=== PATIENT | female | born 1950 | race Caucasian/White ===

== ENCOUNTER 2016-10-11 15:19 | Inpatient (IN) | payer OTHER, MEDICARE ==
[~2016-10-11] VITALS: Ht 154.9 cm; Wt 73.9 kg
--- NOTE | 2016-10-11 15:27 | NUR ---
PT TO ROOM21 BIBA FROM HOME S/P UNWITNESSED FALL. HX OF MENTAL RETARDATION, PT CONFUSED AT BASELINE. PT STATES SHE WAS WAKING TO BATHROOM, TRIPPED AND FELL BACKWARDS, TWISTED LEFT ANKLE. PT ARRIVED AWAKE, ALERT, CONFUSED, +DEFORMITY TO LEFT ANKLE. DENIES HEADSTRIKE, -BLOOD THINNERS. VSS.
--- NOTE | 2016-10-11 15:32 | NUR ---
PT EVALUATED BY PA STUDENT.
--- NOTE | 2016-10-11 15:40 | ED MVC/FALL/TRAUMA COMPLAINT ---
History of Present Illness General Chief Complaint: Fall Stated Complaint: BIBA FALL Source: patient, old records, EMS, home health aide Exam Limitations: history of mental retardation Vital Signs & Intake/Output Vital Signs & Intake/Output Vital Signs Date Time Temp Pulse Resp B/P Pulse O2 O2 Flow FiO2 Ox Delivery Rate 10/12 1657 98.7 95 16 122/70 98 Nasal 2.0L Cannula 10/12 1406 98.3 92 20 125/82 97 10/12 0800 93 Nasal 2.0L Cannula 10/12 0656 97.5 97 20 90/70 93 Room Air 10/11 2124 97.7 103 18 122/84 95 Nasal Cannula 10/11 2114 Nasal 2.0L Cannula 10/11 1921 99.1 106 16 142/83 95 Nasal 2.0L Cannula 10/11 1819 99.6 108 18 136/64 90 Room Air ED Intake and Output 10/12 0000 10/11 1200 Intake Total 400 Output Total Balance 400 Intake, IV 200 Intake, Oral 200 Patient 164 lb Weight Triage Note: PT TO ROOM21 BIBA FROM HOME S/P UNWITNESSED FALL. HX OF MENTAL RETARDATION, PT CONFUSED AT BASELINE. PT STATES SHE WAS WAKING TO BATHROOM, TRIPPED AND FELL BACKWARDS, TWISTED LEFT ANKLE. PT ARRIVED AWAKE, ALERT, CONFUSED, +DEFORMITY TO LEFT ANKLE. DENIES HEADSTRIKE, -BLOOD THINNERS. VSS. Triage Nurses Notes Reviewed? yes HPI: Patient is a 66-year-old female presents claiming of left ankle pain. Patient was in the bathroom when she slipped and fell. Injury occurred at approximately 2:30 PM. Pain is currently severe, worsens with palpation. Denies head injury, neck pain, back pain. (KIARA VALENZUELA,NICCI) Allergies Coded Allergies: No Known Allergies (10/11/16) Reconcile Medications Alendronate Sodium 70 MG TABLET 1 TAB PO QWED OSTEOPOROSIS (Reported) in the morning, at least 30 minutes before the first food, beverage, or medication of the day Aripiprazole 5 MG TABLET 1 TAB PO DAILY MENTAL HEALTH (Reported) Atorvastatin Calcium 20 MG TABLET 1 TAB PO DAILY CHOLESTEROL (Reported) Bifidobacterium Infantis (Align) 4 MG (1 BILLION CELL) CAPSULE 1 CAP PO DAILY PROBIOTIC (Reported) Calcium Carbonate (TUMS) 200 MG CALCIUM (500 MG) TAB.CHEW 2 TAB PO 4 TIMES/DAY PRN GI (Reported) Ibuprofen 600 MG TABLET 1 TAB PO Q6H PRN PAIN/INFLAMMATION (Reported) with food Omeprazole 20 MG CAPSULE.DR 1 CAP PO DAILY GI (Reported) Paroxetine HCl 40 MG TABLET 1 TAB PO DAILY MENTAL HEALTH (Reported) Valsartan 80 MG TABLET 1 TAB PO DAILY BP (Reported) (MARKOS FORMAN,ASHISH) Past History Travel History Traveled to [place] past 21 day No Medical History Any Pertinent Medical History? see below for history Neurological: MENTAL RETARDATION MIGRAINES EENT: rhinitis Cardiovascular: hypertension, hyperlipidemia Gastrointestinal: constipation Musculoskeletal: osteoporosis Psychiatric: depression Surgical History Surgical History: non-contributory Psychosocial History What is your primary language Malawian Tobacco Use: Never used Family History Hx Contributory? No (NICCI VILLAFUERTE) Review of Systems Review of Systems Constitutional: Reports: no symptoms. Eyes: Reports: no symptoms. Ears, Nose, Throat, Mouth: Reports: no symptoms. Respiratory: Reports: no symptoms. Cardiovascular: Reports: no symptoms. Gastrointestinal/Abdominal: Reports: no symptoms. Musculoskeletal: Reports: see HPI. Skin: Reports: no symptoms. Neurological/Psychological: Reports: no symptoms. (NICCI VILLAFUERTE) Physical Exam Physical Exam General Appearance: well developed/nourished, alert, awake Head: atraumatic, normal appearance Eyes: Bilateral: normal appearance, PERRL, EOMI. Ears, Nose, Throat, Mouth: hearing grossly normal, moist mucous membrane Neck: normal inspection, supple, full range of motion, no midline tenderness Respiratory: normal breath sounds, no respiratory distress, lungs clear Cardiovascular: regular rate/rhythm Peripheral Pulses: 2+ dorsalis pedis (L) Gastrointestinal: soft, non-tender Back: normal inspection, normal range of motion Extremities: deformity, swelling, tenderness left distal leg. Neurologic/Psych: awake, alert, sensation to light touch intact to the left foot Skin: intact, warm/dry Core Measures ACS in differential dx? No Severe Sepsis Present: No Septic Shock Present: No (NICCI VILLAFUERTE) Progress Differential Diagnosis: aoritic dissection, abd injury, C/T/L spine injury, ext injury, ICH, pelvis injury, pnemothorax, spinal cord injury Plan of Care: Orders Procedure Date/time Status Nothing by Mouth 10/12 B Active BASIC ELECTROLYTES PLUS BUN&CR 10/12 1159 Complete ARTERIAL BLOOD GAS (GEN) 10/12 1143 Complete Device(s) 10/12 0954 Active EKG 10/12 0900 Active CBC WITHOUT DIFFERENTIAL 10/12 0600 Complete BASIC ELECTROLYTES PLUS BUN&CR 10/12 0600 Complete Clear Liquid Diet 10/11 D Complete Vital Signs 10/11 2111 Active Teach/Educate 10/11 2110 Active Pain Treatment and Response 10/11 2110 Active Nutritional Intake, Monitor 10/11 2110 Active Isolation 10/11 2110 Active Intake & Output 10/11 2110 Active Patient Care Conference 10/11 2110 Active Activity/Ambulation 10/11 2110 Active Patient Data 10/11 1806 Active Code Status 10/11 1806 Active EKG 10/11 1733 Active HEPATIC FUNCTION PANEL 10/11 1718 Complete OXYGEN SETUP (GEN) 10/11 1600 Complete OXYGEN SETUP CHG 10/11 UNK Complete OXYGEN 10/11 UNK Complete OXYGEN TRANSPORT 10/11 UNK Complete Admit to inpatient 10/11 UNK Active Lab Add-on Test 10/11 UNK Active Vital Signs 10/11 UNK Active Intake & Output 10/11 UNK Active Heat/Cold Therapy 10/11 UNK Active Elevate 10/11 UNK Active CMS- Neurovascular Checks 10/11 UNK Active Diet Message 10/11 UNK Active CASE MANAGEMENT CONSULT 10/11 UNK Active Current Medications Sig/Jakob Start time Last Medication Dose Stop Time Status Admin Losartan Potassium 50 MG DAILY 10/13 1000 CAN (Cozaar) Atorvastatin Calcium 20 MG 1700 10/12 1700 AC (Lipitor) Omeprazole 20 MG DAILY AC 10/12 0700 CAN (Prilosec) Bisacodyl 10 MG DAILY PRN 10/11 1815 AC (Dulcolax Supp) Calcium Carbonate 500 MG Q6-PRN PRN 10/11 1815 AC (TUMS) Magnesium Hydroxide 30 ML DAILY NEEDED PRN 10/11 181 AC (Milk Of Magnesia) Laboratory Tests 10/12/16 1300: Anion Gap 12, Estimated GFR 41 L, BUN/Creatinine Ratio 20.8 10/12/16 1200: pH 7.33 L, pCO2 46 H, pO2 100, HCO3 24, ABG O2 Sat (Measured) 97.0, Carboxyhemoglobin 0.5 L, O2 Concentration % 2L, O2 Delivery Method NC, Phlebotomy Draw Site RIGHT RADIAL 10/12/16 0700: Anion Gap 16, Estimated GFR 26 L, BUN/Creatinine Ratio 15.8, CBC w Diff NO MAN DIFF REQ, RBC 3.94 L, MCV 96.9, MCH 32.0 H, RDW 14.8 H, MPV 8.3, Gran % 85.4 H, Lymphocytes % 5.4 L, Monocytes % 9.1, Eosinophils % 0, Basophils % 0.1, Absolute Granulocytes 10.1 H, Absolute Lymphocytes 0.6 L, Absolute Monocytes 1.1 H, Absolute Eosinophils 0, Absolute Basophils 0, PUBS MCHC 33.0 10/11/16 1718: Anion Gap 12, Estimated GFR > 60, BUN/Creatinine Ratio 26.3 H, Glucose 113 H, Calcium 9.7, Total Bilirubin 0.6, Direct Bilirubin 0.3, AST 32, ALT 55 H, Alkaline Phosphatase 112, Total Protein 7.4, Albumin 4.2 1640: Patient re-evaluated. Moderate improvement in pain. Pulses and sensation remain intact. Discussed with and seen by Dr. España. Dr. Olivo paged. Discussed with Dr. Olivo: contact surgical PA, medicine for clearance, and place patient in a posterior long leg splint. Discussed with Dr. Kumar for medicine consultation/clearance (KIARA VALENZUELA,NICCI) Diagnostic Imaging: Viewed by Me: Radiology Read. Discussed w/RAD: Radiology Read. Radiology Impression: PATIENT: NANI ENRIQUEZ PRESENT AGE: 66 PATIENT ACCOUNT NO: [id number] : 49 LOCATION: [facility] ([place]) ORDERING PHYSICIAN: NICCI VALENZUELA SERVICE DATE: 10/11/16 EXAM TYPE: RAD - XRY-ANKLE 3 OR MORE VIEWS L; [id number], LEFT EXAMINATION: XR ANKLE AND X- RAY TIBIA AND FIBULA, LEFT CLINICAL INFORMATION: Status post fall. History tibial deformity. COMPARISON: None TECHNIQUE: AP and lateral views of the left tibia and fibula were obtained. 3 views of the left ankle FINDINGS: Spiral appearing fracture distal tibial shaft with almost shaft width dorsal medial displacement of the proximal fragment. Comminuted displaced fracture midshaft fibula with posteriorly displaced butterfly fragment. Ankle mortise is intact. Moderate soft tissue swelling dorsal, medial and lateral aspects of the ankle and lower leg. IMPRESSION: 1. Displaced spiral fracture distal tibia. 2. Displaced comminuted fracture mid shaft fibula. DICTATED BY: KADY SCHULTZ MD DATE/TIME DICTATED:10/11/161638 MEDICATION RECONCILIATION TECHNICIAN:PEE DATE/TIME TRANSCRIBED:10/11/161638 CONFIDENTIAL, DO NOT COPY WITHOUT APPROPRIATE AUTHORIZATION. <Electronically signed in Other Vendor System> SIGNED BY: KADY SCHULTZ MD 10/11/16 1652 (NICCI VILLAFUERTE) Departure Departure Disposition: STILL A PATIENT Condition: Stable Clinical Impression Primary Impression: Comminuted fracture of shaft of tibia Secondary Impressions: Comminuted fracture of shaft of fibula Referrals: AL FORMAN,ELLIOTT Flores (PCP/Family) Departure Forms: Customer Survey General Discharge Information Admission Note Spoke With: ADAM FORMAN,ERNST Documentation of Exam: Documentation of any treatments & extenuating circumstances including Concerns Regarding Discharge (functional status, medication knowledge or non-compliance, living conditions, etc.) that warrant an admission rather than observation: medical clearance, orthopedic OR intervention, pain control, PT evaluation (NICCI VILLAFUERTE) PA/SHAFT REPAIRER Co-Sign Statement Statement: ED Attending supervision documentation- [X] I saw and evaluated the patient. I have also reviewed all the pertinent lab results and diagnostic results. I agree with the findings and the plan of care as documented in the PA's/SHAFT REPAIRER's documentation. [X] I have reviewed the ED Record and agree with the PA's/SHAFT REPAIRER's documentation. [] Additions or exceptions (if any) to the PAs/SHAFT REPAIRER's note and plan are summarized below: [] (MARKOS FORMAN,ASHISH) Procedures Splinting Location: left lower extremity Hand-Made Type: orthoglass Splint: posterior long leg splint Splint Applied By: splint applied by me Pre-Proc Neuro Vasc Exam: normal Post-Proc Neuro Vasc Exam: normal (NICCI VILLAFUERTE) ED Attending Observation Initial Observation Note: I have seen and personally examined NANI ENRIQUEZ on 10/12/16 at 1657. I agree with the current emergency department documentation. The disposition (admission or discharge) is uncertain at this time, she needs a period of observation for the following reason(s): The ED Nurse caring for this patient has been personally informed as to what the patient is being observed for. (KIARA VALENZUELA,NICCI)
--- NOTE | 2016-10-11 16:00 | NUR ---
IV EST, PT MEDICATED WITH MORPHINE PER EMAR.
[2016-10-11] MEDS ORDERED: ALENDRONATE SOD70 M2 PO (16:11)
[2016-10-11] MEDS ORDERED: PAROXETINE HCL40 M1 PO (16:12)
[2016-10-11] MEDS ORDERED: ATORVASTATIN CA20 M1 PO (16:12)
[2016-10-11] MEDS ORDERED: IBUPROFEN600 M1 PO (16:12)
[2016-10-11] MEDS ORDERED: OMEPRAZOLE20 M2 PO (16:13)
[2016-10-11] MEDS ORDERED: TUMS200 MG PO (16:13)
[2016-10-11] MEDS ORDERED: ARIPIPRAZOLE5 M1 PO (16:15)
[2016-10-11] MEDS ORDERED: ALIGN4 M1 PO (16:16)
[2016-10-11] MEDS ORDERED: VALSARTAN80 M1 PO (16:16)
--- NOTE | 2016-10-11 16:52 | RADIOLOGY REPORT ---
EXAMINATION: XR ANKLE AND X-RAY TIBIA AND FIBULA, LEFT CLINICAL INFORMATION: Status post fall. History tibial deformity. COMPARISON: None TECHNIQUE: AP and lateral views of the left tibia and fibula were obtained. 3 views of the left ankle FINDINGS: Spiral appearing fracture distal tibial shaft with almost shaft width dorsal medial displacement of the proximal fragment. Comminuted displaced fracture midshaft fibula with posteriorly displaced butterfly fragment. Ankle mortise is intact. Moderate soft tissue swelling dorsal, medial and lateral aspects of the ankle and lower leg. IMPRESSION: 1. Displaced spiral fracture distal tibia. 2. Displaced comminuted fracture mid shaft fibula.
[2016-10-11 16:58] LABS: ABSOLUTE BASOPHIL COUNT 0 /CUMM (0.0-0.2); ABSOLUTE EOSINOPHIL COUNT 0.2 /CUMM (0.0-0.7); ABSOLUTE GRANULOCYTE CT 6.9 /CUMM (1.4-6.5); ABSOLUTE LYMPH COUNT 1.6 /CUMM (1.2-3.4); ABSOLUTE MONOCYTE COUNT 0.7 /CUMM (0.10-0.60); BASOPHIL % 0.4 % (0.0-2.0); EOSINOPHIL % 1.8 % (0-5); GRANULOCYTE % 72.8 % (42.2-75.2); HEMATOCRIT 41.5 % (37-47); MEAN CORPUSCULAR HGB 31.9 PG (27.0-31.0); MEAN CORPUSCULAR HGB CONC 33.5 G/DL (33.0-37.0); MEAN CORPUSCULAR VOLUME 95.2 FL (81.0-99.0); MEAN PLATELET VOLUME 8.8 FL (7.4-10.4); PLATELET COUNT 314 /CUMM (130-400); RBC DISTRIBUTION WIDTH 15.2 % (11.5-14.5); RED BLOOD CELL CT 4.36 /CUMM (4.20-5.40); WHITE BLOOD CELL COUNT 9.5 /CUMM (4.8-10.8)
[2016-10-11 17:04] LABS: PT 12.5 SEC (9.4-12.5)
--- NOTE | 2016-10-11 17:05 | NUR ---
PER ED IN THE LAB, REDRAW NEEDED ON BLUE AND SST. AND A PINK TOP
--- NOTE | 2016-10-11 18:10 | Admission Core Measures ---
Admission Lab Results I reviewed the following labs: Laboratory Tests 10/11 10/11 1718 1620 Chemistry Sodium (137 - 145 mmol/L) 138 Potassium (3.5 - 5.1 mmol/L) 4.4 Chloride (98 - 107 mmol/L) 99 Carbon Dioxide (22 - 30 mmol/L) 27 Anion Gap (5 - 16) 12 BUN (7 - 17 mg/dL) 21 H Creatinine (0.5 - 1.0 mg/dL) 0.8 Estimated GFR (>60 ml/min) > 60 BUN/Creatinine Ratio (7 - 25 %) 26.3 H Glucose (65 - 99 mg/dL) 113 H Calcium (8.4 - 10.2 mg/dL) 9.7 Coagulation PT (9.4 - 12.5 SEC) 12.5 INR (0.90 - 1.19) 1.19 Hematology CBC w Diff NO MAN DIFF REQ WBC (4.8 - 10.8 /CUMM) 9.5 RBC (4.20 - 5.40 /CUMM) 4.36 Hgb (12.0 - 16.0 G/DL) 13.9 Hct (37 - 47 %) 41.5 MCV (81.0 - 99.0 FL) 95.2 MCH (27.0 - 31.0 PG) 31.9 H RDW (11.5 - 14.5 %) 15.2 H Plt Count (130 - 400 /CUMM) 314 MPV (7.4 - 10.4 FL) 8.8 Gran % (42.2 - 75.2 %) 72.8 Lymphocytes % (20.5 - 51.1 %) 17.2 L Monocytes % (1.7 - 9.3 %) 7.8 Eosinophils % (0 - 5 %) 1.8 Basophils % (0.0 - 2.0 %) 0.4 Absolute Granulocytes (1.4 - 6.5 /CUMM) 6.9 H Absolute Lymphocytes (1.2 - 3.4 /CUMM) 1.6 Absolute Monocytes (0.10 - 0.60 /CUMM) 0.7 H Absolute Eosinophils (0.0 - 0.7 /CUMM) 0.2 Absolute Basophils (0.0 - 0.2 /CUMM) 0 PUBS MCHC (33.0 - 37.0 G/DL) 33.5 Admission Meds I reviewed the following Meds: Current Medications Sig/Jakob Start time Last Medication Dose Stop Time Status Admin Acetaminophen 1,000 MG Q6H 10/11 181 UNVr (Ofirmev) 10/12 1229 N/A 1 UNIT (No Carrier) Atorvastatin Calcium 20 MG 1700 10/12 1700 UNVr (Lipitor) Bisacodyl 10 MG DAILY PRN 10/11 1814 UNVr (Dulcolax Supp) Calcium Carbonate 500 MG Q6-PRN PRN 10/11 181 UNVr (TUMS) Dextrose/Sodium 1,000 ML Q10H 10/11 181 UNVr Chloride (D5-Normal Saline) Docusate Sodium 100 MG BID 10/11 220 UNVr (Colace) Magnesium Hydroxide 30 ML DAILY NEEDED PRN 10/11 1814 UNVr (Milk Of Magnesia) Morphine Sulfate 2 MG Q3 PRN 10/11 1814 UNVr (Morphine) Morphine Sulfate 4 MG Q3P PRN 10/11 1814 UNVr (Morphine) Morphine Sulfate 4 MG ONCE ONE 10/11 1800 UNVr (Morphine) 10/11 180 Omeprazole 20 MG DAILY AC 10/12 0700 UNVr (Prilosec) Paroxetine HCl 20 MG DAILY 10/12 1000 UNVr (Paxil) Acute Coronary Syndrome Inclusion Criteria ACS Diagnosis No Inpatient Core Measures LDL Reminder: If No, please order W/I first 24hr of stay Congestive Heart Failure Inclusion Criteria CHF Diagnosis No Cerebrovascular accident Inclusion Criteria CVA/TIA Diagnosis No Inpatient Core Measures Bedside Swallow Eval Reminder: If BSE failed, place ST order Antithrombotic Reminder: Order Antithrombotic Medication by end of day 2 Antithrombotic Reminder: Document Reason Antithrombotic Not ordered by end of day 2 AFIB/Flutter Reminder: If Present, add to problem list AFIB/Flutter Reminder: Order Anticoag Medication for pts with AFIB/Flutter Atherosclerosis Reminder: If Present, add to problem list LDL Reminder: If No, please order W/I first 24hr of stay PT Order Reminder: If No, please order Venous thromboembolism Inpatient Core Measures VTE Risk Factors: Age > 40, Trauma major or lower ext No Mech VTE prophylaxis d/t Surgical procedure LE No VTE Pharm Prophylaxis d/t Surgical contraindication Inclusion Criteria - Per Current guidelines, there needs to be overlap - treatment for the first 5 days of Warfarin therapy. - Parenteral Anticoagulation (IV or SC) needs to be - given along with Warfarin therapy. VTE Diagnosis No VTE Type NONE VTE Confirmed by (Test) NONE Problem List As ranked by this Provider includes Assessment & Plan 1. Comminuted fracture of shaft of fibula 2. Comminuted fracture of shaft of tibia 3. Mental retardation 4. GERD (gastroesophageal reflux disease) 5. Depressed 6. Hyperlipidemia HOME MEDS Home Med List Alendronate Sodium 70 MG TABLET 1 TAB PO QWED OSTEOPOROSIS (Reported) Aripiprazole 5 MG TABLET 1 TAB PO DAILY MENTAL HEALTH (Reported) Atorvastatin Calcium 20 MG TABLET 1 TAB PO DAILY CHOLESTEROL (Reported) Bifidobacterium Infantis (Align) 4 MG (1 BILLION CELL) CAPSULE 1 CAP PO DAILY PROBIOTIC (Reported) Calcium Carbonate (TUMS) 200 MG CALCIUM (500 MG) TAB.CHEW 2 TAB PO 4 TIMES/DAY PRN GI (Reported) Ibuprofen 600 MG TABLET 1 TAB PO Q6H PRN PAIN/INFLAMMATION (Reported) Omeprazole 20 MG CAPSULE.DR 1 CAP PO DAILY GI (Reported) Paroxetine HCl 40 MG TABLET 1 TAB PO DAILY MENTAL HEALTH (Reported) Valsartan 80 MG TABLET 1 TAB PO DAILY BP (Reported)
--- NOTE | 2016-10-11 18:16 | History & Physical Pre-Op ---
General Information and HPI MD Statement: I have seen and personally examined NANI ENRIQUEZ and documented this H&P. The patient is a 66 year old F who presented with a patient stated chief complaint of [LEFT LEG PAIN]. Source of Information: patient, family, EMS Exam Limitations: MENTAL RETARDATION History of Present Illness: This 66-year-old female with history of mental retardation with 24 hour care was brought in by ambulation after falling in her bathroom at her apartment, where she is supervised by 24 hour care. She denies precipitating factors, and was accompanied by family yesterday who reports she was feeling well. She denies head trauma. EMS was called after the injury occured at around 2:30 pm today. She has been given several doses of morphine, and was found to have a comminuted fracture involving both her tibia and fibula of her left leg. She is accompanied by her sister, Genevieve, who is also her power of courtesy car driver. Her pain seems to be better after receiving several doses of morphine. Her leg was immobilized by the PA in the ED. They have called the hospitalist for co-management and clearance. Allergies/Medications Allergies: Coded Allergies: No Known Allergies (10/11/16) Home Med list Alendronate Sodium 70 MG TABLET 1 TAB PO QWED OSTEOPOROSIS (Reported) in the morning, at least 30 minutes before the first food, beverage, or medication of the day Aripiprazole 5 MG TABLET 1 TAB PO DAILY MENTAL HEALTH (Reported) Atorvastatin Calcium 20 MG TABLET 1 TAB PO DAILY CHOLESTEROL (Reported) Bifidobacterium Infantis (Align) 4 MG (1 BILLION CELL) CAPSULE 1 CAP PO DAILY PROBIOTIC (Reported) Calcium Carbonate (TUMS) 200 MG CALCIUM (500 MG) TAB.CHEW 2 TAB PO 4 TIMES/DAY PRN GI (Reported) Ibuprofen 600 MG TABLET 1 TAB PO Q6H PRN PAIN/INFLAMMATION (Reported) with food Omeprazole 20 MG CAPSULE.DR 1 CAP PO DAILY GI (Reported) Paroxetine HCl 40 MG TABLET 1 TAB PO DAILY MENTAL HEALTH (Reported) Valsartan 80 MG TABLET 1 TAB PO DAILY BP (Reported) Past History Medical History Neurological: MENTAL RETARDATION MIGRAINES EENT: rhinitis Cardiovascular: hypertension, hyperlipidemia Gastrointestinal: constipation Musculoskeletal: osteoporosis Psychiatric: depression Surgical History Pertinent Surgical History: non-contributory Past Family/Social History Psychosocial History Where Do You Live? Home Who Do You Live With? roommate, who also requires 24 hour care Services at Home 24 hour care Primary Language: Bangladeshi Functional Ability Ambulation: independent Review of Systems Review of Systems: admits: left leg pain denies: dizziness, shortness of breath, chest pains, abdominal pain, headache, dysuria Exam & Diagnostic Data Last 24 Hrs of Vital Signs/I&O Vital Signs Date Time Temp Pulse Resp B/P Pulse O2 O2 Flow FiO2 Ox Delivery Rate 10/11 1524 99.5 96 18 156/76 97 Room Air Intake & Output 10/11 1600 10/11 0800 10/11 0000 Intake Total Output Total Balance Patient 190 lb Weight Physical Exam: General - alert. oriented to person, place, day of the week, situation. comfortable. heent - ncat. decreased hearing bilaterally, apparently her baseline. skin - warm, dry, smooth Lungs - clear bilaterally. no w/r/r. Cardiac - s1s2. reg. Abdomen - soft. nontender. Extremities - warm bilaterally. obvious deformity noted to her left lower leg. sensation grossly equal. able to move her toes with respect to her fractured / left leg. did not attempt range of motion of her lower leg. immobilized by ED. Neuro - no focal deficits. Last 24 Hrs of Labs/Ervin: Laboratory Tests 10/11/16 1718: Anion Gap 12, Estimated GFR > 60, BUN/Creatinine Ratio 26.3 H, Glucose 113 H, Calcium 9.7 10/11/16 1620: PT 12.5, INR 1.19, CBC w Diff NO MAN DIFF REQ, RBC 4.36, MCV 95.2, MCH 31.9 H, RDW 15.2 H, MPV 8.8, Gran % 72.8, Lymphocytes % 17.2 L, Monocytes % 7.8, Eosinophils % 1.8, Basophils % 0.4, Absolute Granulocytes 6.9 H, Absolute Lymphocytes 1.6, Absolute Monocytes 0.7 H, Absolute Eosinophils 0.2, Absolute Basophils 0, PUBS MCHC 33.5 Diagnostic Data Other Results EXAMINATION: XR ANKLE AND X-RAY TIBIA AND FIBULA, LEFT CLINICAL INFORMATION: Status post fall. History tibial deformity. COMPARISON: None TECHNIQUE: AP and lateral views of the left tibia and fibula were obtained. 3 views of the left ankle FINDINGS: Spiral appearing fracture distal tibial shaft with almost shaft width dorsal medial displacement of the proximal fragment. Comminuted displaced fracture midshaft fibula with posteriorly displaced butterfly fragment. Ankle mortise is intact. Moderate soft tissue swelling dorsal, medial and lateral aspects of the ankle and lower leg. IMPRESSION: 1. Displaced spiral fracture distal tibia. 2. Displaced comminuted fracture mid shaft fibula. DICTATED BY: KADY SCHULTZ MD DATE/TIME DICTATED:10/11/161638 NUT SHELLER:PEE DATE/TIME TRANSCRIBED:10/11/161638 CONFIDENTIAL, DO NOT COPY WITHOUT APPROPRIATE AUTHORIZATION. Assessment/Plan Assessment/Plan: This 66 year old female with known mental retardation, gerd, hyperlipidemia, depression, is here with left sided spiral appearing fracture of distal tibial shaft and comminuted displaced fracture midshaft fibula npo after midnight for surgery tomorrow with pain control as needed medical consult called for co-management elevation / ice / immobilization hold heparin sc if going to OR in am monitor for compartment syndrome will d/w her sister Genevieve is power of courtesy car driver, As Ranked By This Provider Problem List: 1. Comminuted fracture of shaft of tibia 2. Comminuted fracture of shaft of fibula 3. Mental retardation 4. GERD (gastroesophageal reflux disease) 5. Depressed 6. Hyperlipidemia
--- NOTE | 2016-10-11 18:41 | Cons- Medical ---
HUBERT GAFFNEY MD 10/11/16 1841: General Information and HPI Consulting Request Date of Consult: 10/11/16 Requested By: Jani Olivo MD Reason for Consult: preop Reevaluation History of Present Illness: this is a 66-year-old female with a past medical history of mental retardation since , tension, anxiety, obsessive-compulsive disorder, hyperlipidemia, GERD currently residing in in an assisted living in a separate apartment with 24 -hour home caregiver who presented to the [facility] after she had a mechanical fall while she was trying to use a commode in the bathroom. The patient herself is not able to provide any history and most of the history was obtained by the patient's sister at the bedside who is well familiar with the patient's past medical history. As per the patient's sister, the nurses who was taking care of the patient reported that the patient fell while trying to opening the door. The patient herself remembers the incident and does not recall being dizzy or lightheaded. She also denies any chest pain shortness of breath or palpitations prior to the fall Allergies/Medications Allergies: Coded Allergies: No Known Allergies (10/11/16) Home Med List: Alendronate Sodium 70 MG TABLET 1 TAB PO QWED OSTEOPOROSIS (Reported) in the morning, at least 30 minutes before the first food, beverage, or medication of the day Aripiprazole 5 MG TABLET 1 TAB PO DAILY MENTAL HEALTH (Reported) Atorvastatin Calcium 20 MG TABLET 1 TAB PO DAILY CHOLESTEROL (Reported) Bifidobacterium Infantis (Align) 4 MG (1 BILLION CELL) CAPSULE 1 CAP PO DAILY PROBIOTIC (Reported) Calcium Carbonate (TUMS) 200 MG CALCIUM (500 MG) TAB.CHEW 2 TAB PO 4 TIMES/DAY PRN GI (Reported) Ibuprofen 600 MG TABLET 1 TAB PO Q6H PRN PAIN/INFLAMMATION (Reported) with food Omeprazole 20 MG CAPSULE.DR 1 CAP PO DAILY GI (Reported) Paroxetine HCl 40 MG TABLET 1 TAB PO DAILY MENTAL HEALTH (Reported) Valsartan 80 MG TABLET 1 TAB PO DAILY BP (Reported) Review of Systems Review of Systems Constitutional: Reports: see HPI. Cardiovascular: Reports: see HPI. Respiratory: Reports: see HPI. GI: Reports: see HPI. Past History Travel History Traveled to [place] past 21 day No Medical History Neurological: MENTAL RETARDATION MIGRAINES EENT: rhinitis Cardiovascular: hypertension, hyperlipidemia Gastrointestinal: constipation Musculoskeletal: osteoporosis Psychiatric: depression Surgical History Surgical History: non-contributory Psychosocial History Where Do You Live? Home Who Do You Live With? roommate, who also requires 24 hour care Services at Home: 24 hour care Primary Language: Turkmen Smoking Status: Never Smoked ETOH Use: denies use Living Will? yes Functional Ability Ambulation: independent Exam & Diagnostic Data Last 24 Hrs of Vital Signs/I&O Vital Signs Date Time Temp Pulse Resp B/P Pulse O2 O2 Flow FiO2 Ox Delivery Rate 10/11 1819 99.6 108 18 136/64 90 Room Air 10/11 1524 99.5 96 18 156/76 97 Room Air Intake & Output 10/11 1600 10/11 0800 10/11 0000 Intake Total Output Total Balance Patient 190 lb Weight Physical Exam General Appearance: no apparent distress, alert, obese Head: atraumatic, normal appearance Eyes: Left: PERRL. Respiratory: normal breath sounds, chest non-tender Cardiovascular: regular rate/rhythm Last 24 Hrs of Labs/Ervin: Laboratory Tests 10/11/16 1718: Anion Gap 12, Estimated GFR > 60, BUN/Creatinine Ratio 26.3 H, Glucose 113 H, Calcium 9.7 10/11/16 1620: PT 12.5, INR 1.19, CBC w Diff NO MAN DIFF REQ, RBC 4.36, MCV 95.2, MCH 31.9 H, RDW 15.2 H, MPV 8.8, Gran % 72.8, Lymphocytes % 17.2 L, Monocytes % 7.8, Eosinophils % 1.8, Basophils % 0.4, Absolute Granulocytes 6.9 H, Absolute Lymphocytes 1.6, Absolute Monocytes 0.7 H, Absolute Eosinophils 0.2, Absolute Basophils 0, PUBS MCHC 33.5 Diagnostic Data EKG Results Normal sinus rhythm Other Results 1. Displaced spiral fracture distal tibia. 2. Displaced comminuted fracture mid shaft fibula. Assessment/Plan Assessment/Plan this is a 66-year-old female who is mentally challenged since , history of hypertension, obsessive-compulsive disorder, hyperlipidemia, GERD ,osteoperosis and bisphosphnate therapy presented to the [facility] after having a mechanical fall which resulted in a displaced fracture of the tibia and fibula Patient's vitals were within normal limits Fever of 99.5, pulse rate of 78, respiration rate 18, saturation of 94% on room air Labs WBC hemoglobin and CBC look unremarkable Normal creatinine X-ray of the leg shows 1. Displaced spiral fracture distal tibia. 2. Displaced comminuted fracture mid shaft fibula. EKG shows normal sinus rhythm Assessment 1. Displaced spiral fracture of the distal tibia and comminuted fracture of the mid shaft of fibula secondary to mechanical fall in a patinet with osteoperosis. 2. History of hypertension 3. History of mental retardation since 4. History of gerd Plan At this point the patient's RCR index is less than 0.4% for the surgery. Hence the patient can safely undergo anesthesia and proceed with the surgery The patient does not need any for the prior testing Recommend holding valsartan preoperatively and resume in the next 24 hours Subcutaneous DVT ppx at all times Likely the patient would require rehabilitation in the time of discharge Problem List: 1. Hyperlipidemia 2. Depressed 3. Comminuted fracture of shaft of fibula 4. Comminuted fracture of shaft of tibia Consult Acknowledgment - Thank you for your consult request. LYNN AGUIRRE 10/12/16 0221: Assessment/Plan Consult Acknowledgment - Thank you for your consult request. Attending MD Review Statement Attending Statement Attending MD Statement: examined this patient, discuss w/resident/PA/LOCATOR SPECIALIST, agreed w/resident/PA/LOCATOR SPECIALIST, discussed with family, reviewed EMR data (avail), reviewed images, amended to note Attending Assessment/Plan: Cc: medical consult for presurgical evaluation, comanagement for fall and fracture PMH: Mental retardation, HTN, HLD, OCD, MARIA G, OA, GERD Patient came to ER for witnessed fall, pain in left lower extremity. Patient denies any chest pain, palpitations, dizziness, blurry vision, loss of consciousness before and after the fall. Patient provides some details, most of the history obtain from patient's sister. 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 No history of CAD, chest pain on exertion, stroke, was never worked up for any CAD or PVD. Vitals: Mild tachycardia otherwise unremarkable. On exam: A, cooperative, no acute distress, neck supple, no JVD, no lymphadenopathy, mucosa moist, no focal neurological deficit, no dependent edema , no obvious skin rashes or inflammation, left lower extremity in splint CVS: S1 -S2, RRR. RS: Clear to auscultate bilaterally. Abdomen: Soft, NT, ND, bowel sounds present. Labs: Unremarkable EKG: Poor progression of R wave otherwise unremarkable, no Q waves A and P - Preop evaluation - MR - HTN - HLD I agree with resident's note that low RCR I and hence low risk for surgery (0.4 percent) . Agreed to hold valsartan for now, resume after surgery DVT prophylaxis after the surgery, Alps to right lower extremity We will follow along.
--- NOTE | 2016-10-11 18:57 | NUR ---
PT TO ROOM 230 BED 1
--- NOTE | 2016-10-11 19:00 | NUR ---
PT MEDICATED WITH MORPHINE PER EMAR. OFIRMEV AND NS INFUSING PER EMAR. VSS. FAMILY AT BEDSIDE. AWAITING ADMISSION.
--- NOTE | 2016-10-11 20:09 | NUR ---
REPORT CALLED TO JANET OVERTON TO [facility]. [facility] CALLED FOR TRANSPORT.
[2016-10-11 21:24] VITALS: BP 122/84
--- NOTE | 2016-10-12 | NUR ---
RECEIVED PT @ 2100 FROM ER. ALERT AND VERBAL. SLOW TO RESPOND. H/O MR. CONFUSED AT TIMES. MILLE LACS. PT HAS NOELLE HEARING AIDS TAKEN OUT AT BEDTIME AND SAVED IN A CONTAINER ON THE SIDE TABLE. VSS ON 2L O2 NC. HR 103. C/O MODERATE PAIN IN LLE. LLE IN SPLINT AND LINDA WRAPPED. LLE ELEVATED. PT NPO FOR SURGERY TO LLE TODAY. WILL MONITOR.
[2016-10-12 06:56] VITALS: BP 90/70
--- NOTE | 2016-10-12 08:03 | PN- Orthopedic ---
Surgical Brief Attending Note Brief Attending Note: This patient is a 66-year-old woman with a history of a fall resulting in a comminuted displaced tibia/fibula fracture on the left. She has a pertinent history of mental retardation. Patient has been seen in our office for other orthopedic issues. I will contact the power of assistant city attorney to discuss options for treatment. This type of fracture is best treated with surgical management and intramedullary nailing for more efficient mobilization to minimize possible complications. Patient is sleeping comfortably this morning and I spoke to the nurse who reported that patient had minimal pain that was addressed with Tylenol only. Also, palpation around the splint revealed relatively soft compartments without eliciting any pain. Good capillary refill distally. The toes are warm to touch .Therefore less concern for compartment syndrome. Patient did have a low energy injury that resulted in this fracture and therefore is less at risk for developing a compartment syndrome but still needs to be monitored preoperatively and postoperatively. Patient will be placed on the add-on surgical list pending our conversation with the power of assistant city attorney.
[2016-10-12 08:34] LABS: ABSOLUTE BASOPHIL COUNT 0 /CUMM (0.0-0.2); ABSOLUTE EOSINOPHIL COUNT 0 /CUMM (0.0-0.7); ABSOLUTE GRANULOCYTE CT 10.1 /CUMM (1.4-6.5); ABSOLUTE LYMPH COUNT 0.6 /CUMM (1.2-3.4); ABSOLUTE MONOCYTE COUNT 1.1 /CUMM (0.10-0.60); BASOPHIL % 0.1 % (0.0-2.0); EOSINOPHIL % 0 % (0-5); HEMATOCRIT 38.2 % (37-47); MEAN CORPUSCULAR VOLUME 96.9 FL (81.0-99.0); MEAN PLATELET VOLUME 8.3 FL (7.4-10.4); PLATELET COUNT 315 /CUMM (130-400); RBC DISTRIBUTION WIDTH 14.8 % (11.5-14.5); RED BLOOD CELL CT 3.94 /CUMM (4.20-5.40); WHITE BLOOD CELL COUNT 11.8 /CUMM (4.8-10.8)
--- NOTE | 2016-10-12 09:23 | PN- Medicine Consult ---
STUART FORMAN,SHAILESH 10/12/16 0858: Assessment/Plan Assessment/Plan Assessment: 66-year-old F who is mental retardation since , history of hypertension, obsessive-compulsive disorder, hyperlipidemia, GERD ,osteoporosis on bisphosphnate therapy presented to the [facility] after having a mechanical fall which resulted in a displaced fracture of the tibia and fibula. She is NPO with IVF running for surgical procedure planned today, intramedullary nailing. Fracture NPO on IVF for intramedullary nailing, after surgeon discusses with POA regarding surgical procedure. Pain control with IV tylenol at this time. HTN BP 90/70 Recommend holding JUSTYN inhibitor this morning. K is elevated, 5.7 this is another reason to hold medication Hyperkalemia Continue to hydrate, will check EKG, hold JUSTYN inhibitor Continue abilify which can cause hypokalemia RAUL Cr 0.8-1.9 Fluids have been started early this morning, appears to be dry will continue fluids, recommend increasing rate @ 125ml/hr HLD continue cozaar GERD continue prilosec Depression continue Abilify, Paxil DVT ppx per surgical management per notation, holding heparin in anticpation of surgical procedure Plan: Fracture NPO on IVF for intramedullary nailing, after surgeon discusses with POA regarding surgical procedure. Pain control with IV tylenol at this time. HTN BP 90/70 Recommend holding JUSTYN inhibitor this morning. K is elevated, 5.7 this is another reason to hold medication Hyperkalemia Continue to hydrate, will check EKG, hold JUSTYN inhibitor Continue abilify which can cause hypokalemia RAUL Cr 0.8-1.9 Fluids have been started early this morning, appears to be dry will continue fluids, recommend increasing rate @ 125ml/hr HLD continue cozaar GERD continue prilosec Depression continue Abilify, Paxil DVT ppx per surgical management per notation, holding heparin in anticpation of surgical procedure Problem List: 1. Comminuted fracture of shaft of tibia 2. Comminuted fracture of shaft of fibula 3. Mental retardation 4. GERD (gastroesophageal reflux disease) 5. Depressed 6. Hyperlipidemia 7. Hypertension 8. RAUL (acute kidney injury) Subjective Subjective: Sleeping on arrival. Awakes to stimuli, does not appear to be in any discomfort Review of Systems Constitutional: Reports: see HPI. Objective Last 24 Hrs of Vital Signs/I&O Vital Signs Date Time Temp Pulse Resp B/P Pulse O2 O2 Flow FiO2 Ox Delivery Rate 10/12 0656 97.5 97 20 90/70 93 Room Air 10/12 2123 97.7 103 18 122/84 95 Nasal Cannula 10/114 Nasal 2.0L Cannula 10/11 1920 99.1 106 16 142/83 95 Nasal 2.0L Cannula 10/11 1818 99.6 108 18 136/64 90 Room Air 10/11 1524 99.5 96 18 156/76 97 Room Air Intake & Output 10/12 1600 10/12 0800 10/12 0000 Intake Total 900 400 Output Total Balance 900 400 Intake, IV 800 200 Intake, Oral 100 200 Patient 164 lb Weight Physical Exam General Appearance: well developed/nourished, no apparent distress, alert, awake , obese Head: atraumatic, normal appearance Neck: normal inspection, supple Cardiovascular: regular rate/rhythm, normal peripheral pulses Respiratory: rhonchi Peripheral Pulses: 2+ radial (R) Abdomen: normal bowel sounds, soft, non-tender Extremities: left leg immobilized Neurologic/Psychiatric: awake, alert Current Medications: Current Medications Sig/Jakob Start time Last Medication Dose Route Stop Time Status Admin Acetaminophen 0 .STK-MED ONE 10/11 1904 DC IV Acetaminophen 1,000 MG Q6H 10/11 1814 AC 10/12 N/A 1 UNIT IV 10/12 1229 0558 Aripiprazole 5 MG DAILY 10/12 1000 AC PO Atorvastatin Calcium 20 MG 1700 10/12 1700 AC PO Bisacodyl 10 MG DAILY PRN 10/11 1814 AC KY Calcium Carbonate 500 MG Q6-PRN PRN 10/11 181 AC PO Dextrose/Sodium 1,000 ML Q10H 10/11 1815 AC 10/12 Chloride IV 0558 Dextrose/Sodium 1,000 ML Q8H 10/11 1800 DC Chloride IV 10/12 0159 Docusate Sodium 100 MG BID 10/11 2200 AC 10/11 PO 2210 Losartan Potassium 50 MG DAILY 10/13 1000 CAN PO Losartan Potassium 50 MG DAILY 10/12 1000 DC PO Magnesium Hydroxide 30 ML DAILY NEEDED PRN 10/11 181 AC PO Morphine Sulfate 0 .STK-MED ONE 10/11 190 DC .ROUTE Morphine Sulfate 2 MG Q3P PRN 04/17 1815 AC IV Morphine Sulfate 4 MG Q3P PRN 10/11 1815 AC 10/11 IV 2211 Morphine Sulfate 4 MG ONCE ONE 10/11 1800 DC 10/11 IV 10/11 1801 1900 Morphine Sulfate 0 .STK-MED ONE 10/11 1733 DC .ROUTE Morphine Sulfate 4 MG ONCE ONE 10/11 1645 DC 10/11 IV 10/11 1646 1739 Morphine Sulfate 0 .STK-MED ONE 10/11 1608 DC .ROUTE Morphine Sulfate 4 MG ONCE ONE 10/11 1545 DC 10/11 IV 10/11 1546 1600 Omeprazole 20 MG DAILY AC 10/12 0700 CAN PO Omeprazole 20 MG AT BEDTIME 10/11 2215 AC 10/11 PO 2210 Paroxetine HCl 40 MG DAILY 10/12 1000 AC PO Results Last 24 Hrs Lab/Ervin Results: Laboratory Tests 10/12/16 0700: Anion Gap 16, Estimated GFR 26 L, BUN/Creatinine Ratio 15.8, CBC w Diff Pending , WBC Pending, RBC Pending, Hgb Pending, Hct Pending, MCV Pending, MCH Pending, RDW Pending, Plt Count Pending, MPV Pending, Gran % Pending, Lymphocytes % Pending, Monocytes % Pending, Eosinophils % Pending, Basophils % Pending, Absolute Granulocytes Pending, Absolute Lymphocytes Pending, Absolute Monocytes Pending, Absolute Eosinophils Pending, Absolute Basophils Pending, PUBS MCHC Pending 10/11/16 1718: Anion Gap 12, Estimated GFR > 60, BUN/Creatinine Ratio 26.3 H, Glucose 113 H, Calcium 9.7, Total Bilirubin 0.6, Direct Bilirubin 0.3, AST 32, ALT 55 H, Alkaline Phosphatase 112, Total Protein 7.4, Albumin 4.2 10/11/16 1620: PT 12.5, INR 1.19, CBC w Diff NO MAN DIFF REQ, RBC 4.36, MCV 95.2, MCH 31.9 H, RDW 15.2 H, MPV 8.8, Gran % 72.8, Lymphocytes % 17.2 L, Monocytes % 7.8, Eosinophils % 1.8, Basophils % 0.4, Absolute Granulocytes 6.9 H, Absolute Lymphocytes 1.6, Absolute Monocytes 0.7 H, Absolute Eosinophils 0.2, Absolute Basophils 0, PUBS MCHC 33.5 Recent Imaging Studies: 1. Displaced spiral fracture distal tibia. 2. Displaced comminuted fracture mid shaft fibula. JASON FORMAN,SOFIE 10/12/16 1156: Attending MD Review Statement Attending Sign Off Attending Cosign Statement: I have: examined this patient, reviewed [facility] EMR data, personally reviewd images, discussd w/resident/PA/PETROGRAPHER, discussed mgmt plan w/pt, agreed w/resident/ PA/PETROGRAPHER, amended to note. Other Findings: Patient seen and examined, not able to medicate bowel secondary to having history of mental retardation. She was slightly sleepy but arousable. She was looking slightly short of breath and now requiring oxygen. She has received IV fluids overnight. Vital Signs Date Time Temp Pulse Resp B/P Pulse O2 O2 Flow FiO2 Ox Delivery Rate 10/12 0800 93 Nasal 2.0L Cannula 10/12 0656 97.5 97 20 90/70 93 Room Air 10/11 2124 97.7 103 18 122/84 95 Nasal Cannula 10/11 2114 Nasal 2.0L Cannula 10/11 1921 99.1 106 16 142/83 95 Nasal 2.0L Cannula 10/11 1819 99.6 108 18 136/64 90 Room Air 10/11 1524 99.5 96 18 156/76 97 Room Air on exam; Sleepy but arousable. cv; s1,s2, rrr resp; scattered rhonci. abd; soft, nt, bs+ ext; no edema. ms:lle is immobilized in soft cast and Justyn wrap. Laboratory Tests 10/12 10/11 0700 1718 Chemistry Sodium (137 - 145 mmol/L) 139 138 Potassium (3.5 - 5.1 mmol/L) 5.7 H 4.4 Chloride (98 - 107 mmol/L) 100 99 Carbon Dioxide (22 - 30 mmol/L) 24 27 Anion Gap (5 - 16) 16 12 BUN (7 - 17 mg/dL) 30 H 21 H Creatinine (0.5 - 1.0 mg/dL) 1.9 H 0.8 Estimated GFR (>60 ml/min) 26 L > 60 BUN/Creatinine Ratio (7 - 25 %) 15.8 26.3 H Glucose (65 - 99 mg/dL) 113 H Calcium (8.4 - 10.2 mg/dL) 9.7 Total Bilirubin (0.2 - 1.3 mg/dL) 0.6 Direct Bilirubin (< 0.4 mg/dL) 0.3 AST (14 - 36 U/L) 32 ALT (9 - 52 U/L) 55 H Alkaline Phosphatase (<127 U/L) 112 Total Protein (6.3 - 8.2 g/dL) 7.4 Albumin (3.5 - 5.0 g/dL) 4.2 Hematology CBC w Diff NO MAN DIFF REQ WBC (4.8 - 10.8 /CUMM) 11.8 H RBC (4.20 - 5.40 /CUMM) 3.94 L Hgb (12.0 - 16.0 G/DL) 12.6 Hct (37 - 47 %) 38.2 MCV (81.0 - 99.0 FL) 96.9 MCH (27.0 - 31.0 PG) 32.0 H RDW (11.5 - 14.5 %) 14.8 H Plt Count (130 - 400 /CUMM) 315 MPV (7.4 - 10.4 FL) 8.3 Gran % (42.2 - 75.2 %) 85.4 H Lymphocytes % (20.5 - 51.1 %) 5.4 L Monocytes % (1.7 - 9.3 %) 9.1 Eosinophils % (0 - 5 %) 0 Basophils % (0.0 - 2.0 %) 0.1 Absolute Granulocytes (1.4 - 6.5 /CUMM) 10.1 H Absolute Lymphocytes (1.2 - 3.4 /CUMM) 0.6 L Absolute Monocytes (0.10 - 0.60 /CUMM) 1.1 H Absolute Eosinophils (0.0 - 0.7 /CUMM) 0 Absolute Basophils (0.0 - 0.2 /CUMM) 0 PUBS MCHC (33.0 - 37.0 G/DL) 33.0 04/17 1620 Coagulation PT (9.4 - 12.5 SEC) 12.5 INR (0.90 - 1.19) 1.19 Hematology CBC w Diff NO MAN DIFF REQ WBC (4.8 - 10.8 /CUMM) 9.5 RBC (4.20 - 5.40 /CUMM) 4.36 Hgb (12.0 - 16.0 G/DL) 13.9 Hct (37 - 47 %) 41.5 MCV (81.0 - 99.0 FL) 95.2 MCH (27.0 - 31.0 PG) 31.9 H RDW (11.5 - 14.5 %) 15.2 H Plt Count (130 - 400 /CUMM) 314 MPV (7.4 - 10.4 FL) 8.8 Gran % (42.2 - 75.2 %) 72.8 Lymphocytes % (20.5 - 51.1 %) 17.2 L Monocytes % (1.7 - 9.3 %) 7.8 Eosinophils % (0 - 5 %) 1.8 Basophils % (0.0 - 2.0 %) 0.4 Absolute Granulocytes (1.4 - 6.5 /CUMM) 6.9 H Absolute Lymphocytes (1.2 - 3.4 /CUMM) 1.6 Absolute Monocytes (0.10 - 0.60 /CUMM) 0.7 H Absolute Eosinophils (0.0 - 0.7 /CUMM) 0.2 Absolute Basophils (0.0 - 0.2 /CUMM) 0 PUBS MCHC (33.0 - 37.0 G/DL) 33.5 A/P; 66 y/o F with pmh sig for mental retardation since , tension, anxiety , obsessive-compulsive disorder, hyperlipidemia, GERD admitted with a mechanical fall and found to have left-sided tibia-fibula fracture. Patient was seen last evening and was considered as a low risk for surgery. This morning she is requiring oxygen, looking slightly short of breath. Also she has developed acute renal failure as well as hyperkalemia. Please get a chest x-ray and a blood gas stat. Please obtain an EKG stat. Patient has received IV fluids overnight. I would obtain a stat BEP. I will hold her Losartan. Patient is scheduled first surgery later today. We need to make sure that her labs are in the reasonable range before she goes for surgery. Continue her other psych medications. She will need to be started on DVT prophylaxis postoperatively.
[2016-10-12 10:38] LABS: GRANULOCYTE % 85.4 % (42.2-75.2)
[2016-10-12 14:06] VITALS: BP 125/82
--- NOTE | 2016-10-12 15:26 | RADIOLOGY REPORT ---
EXAMINATION: XR PORTABLE CHEST CLINICAL INFORMATION: Bronchi. Increased oxygen requirement. Acute tibia and fibula fracture. COMPARISON: Chest x-ray dated 02/24/2013 TECHNIQUE: Portable AP view of the chest was obtained. FINDINGS: The cardiomediastinal silhouette appears mildly enlarged, likely due to the AP technique and low lung volumes. Slight elevation of the right hemidiaphragm is seen, similar to the previous exam. Bibasilar linear opacities are noted, consistent with subsegmental atelectasis. No consolidation, effusion or pneumothorax is seen. Bony structures are unremarkable. IMPRESSION: Mild bibasilar subsegmental atelectasis.
[2016-10-12 16:57] VITALS: BP 122/70
--- NOTE | 2016-10-12 17:01 | NUR ---
APRX 1700 PT OFF FLOOR TO OR. VSS. PT DENIES PAIN. SISTER (POA) CALLED.
--- NOTE | 2016-10-12 20:09 | RADIOLOGY REPORT ---
EXAMINATION: XR PORTABLE CHEST CLINICAL INFORMATION: Postop. Question aspiration. COMPARISON: 10/12/2016 TECHNIQUE: Portable AP view of the chest was obtained. FINDINGS: Cardiac leads overlie the chest. Low lung volumes. There is a new opacity in the left perihilar region. No pleural effusion or pneumothorax. Central vascular prominence bilaterally. The cardiomediastinal silhouette is unchanged. Degenerative changes at the left shoulder. IMPRESSION: New left perihilar airspace opacity may represent aspiration.
--- NOTE | 2016-10-12 20:23 | NUR ---
PT TO BE TRANSFERED FROM OR TO ICU. REPORT GIVEN TO JANET GARZA AT 2019.
--- NOTE | 2016-10-12 21:22 | PN- Orthopedic ---
Subjective Subjective: Postop check: Patient vomited during surgery and became mildly hypoxic, chest x-ray shows likely aspiration pneumonia. She was transferred to the ICU for further monitoring. Upon evaluation patient is comfortable, she does not feel short of breath, she is on supplemental oxygen. She has no pain in the left leg. Discussed with patient and family who is at bedside. Objective Vital Signs and I&Os Vital Signs Date Time Temp Pulse Resp B/P Pulse O2 O2 Flow FiO2 Ox Delivery Rate 10/12 1657 98.7 95 16 122/70 98 Nasal 2.0L Cannula 10/12 1600 Nasal 2.0L Cannula 10/12 1406 98.3 92 20 125/82 97 10/12 0800 93 Nasal 2.0L Cannula 10/12 0656 97.5 97 20 90/70 93 Room Air 10/11 2124 97.7 103 18 122/84 95 Nasal Cannula Intake & Output 10/12 1600 10/12 0800 10/12 0000 10/11 1600 10/11 0800 10/11 0000 Intake Total 800 900 400 Output Total 450 Balance 350 900 400 Intake, IV 800 800 200 Intake, Oral 0 100 200 Output, Urine 450 Patient 164 lb 190 lb Weight Physical Exam: Well-developed well-nourished no apparent distress. HEENT: Atraumatic, extraocular motion intact Neck: Supple, no lymphadenopathy Respiratory: No respiratory distress, crackles noted left lung Heart: Tachycardic Extremities: Left lower extremity, splint in place, dressing clean dry and intact, neurovascularly intact distally, dorsal pedal pulses 2+. Neuro: Alert and oriented x3 Psych: Mood affect normal, normal memory normal judgment. Skin: Warm and dry, no rash on exposed skin Results Last 48 Hours of Labs: Laboratory Tests 10/12 10/12 10/12 1300 1200 0700 Blood Gas pH (7.35 - 7.45 PH) 7.33 L pCO2 (35 - 45 TORR) 46 H pO2 (80 - 100 TORR) 100 HCO3 (21 - 28 MEQ/L) 24 ABG O2 Sat (Measured) (>96.0 %) 97.0 Carboxyhemoglobin (1.5 - 5.0 %) 0.5 L O2 Concentration % 2L O2 Delivery Method NC Chemistry Sodium (137 - 145 mmol/L) 139 139 Potassium (3.5 - 5.1 mmol/L) 4.9 5.7 H Chloride (98 - 107 mmol/L) 101 100 Carbon Dioxide (22 - 30 mmol/L) 27 24 Anion Gap (5 - 16) 12 16 BUN (7 - 17 mg/dL) 27 H 30 H Creatinine (0.5 - 1.0 mg/dL) 1.3 H 1.9 H Estimated GFR (>60 ml/min) 41 L 26 L BUN/Creatinine Ratio (7 - 25 %) 20.8 15.8 Hematology CBC w Diff NO MAN DIFF REQ WBC (4.8 - 10.8 /CUMM) 11.8 H RBC (4.20 - 5.40 /CUMM) 3.94 L Hgb (12.0 - 16.0 G/DL) 12.6 Hct (37 - 47 %) 38.2 MCV (81.0 - 99.0 FL) 96.9 MCH (27.0 - 31.0 PG) 32.0 H RDW (11.5 - 14.5 %) 14.8 H Plt Count (130 - 400 /CUMM) 315 MPV (7.4 - 10.4 FL) 8.3 Gran % (42.2 - 75.2 %) 85.4 H Lymphocytes % (20.5 - 51.1 %) 5.4 L Monocytes % (1.7 - 9.3 %) 9.1 Eosinophils % (0 - 5 %) 0 Basophils % (0.0 - 2.0 %) 0.1 Absolute Granulocytes (1.4 - 6.5 /CUMM) 10.1 H Absolute Lymphocytes (1.2 - 3.4 /CUMM) 0.6 L Absolute Monocytes (0.10 - 0.60 /CUMM) 1.1 H Absolute Eosinophils (0.0 - 0.7 /CUMM) 0 Absolute Basophils (0.0 - 0.2 /CUMM) 0 PUBS MCHC (33.0 - 37.0 G/DL) 33.0 Miscellaneous Phlebotomy Draw Site RIGHT RADIAL 10/11 10/11 1718 1620 Chemistry Sodium (137 - 145 mmol/L) 138 Potassium (3.5 - 5.1 mmol/L) 4.4 Chloride (98 - 107 mmol/L) 99 Carbon Dioxide (22 - 30 mmol/L) 27 Anion Gap (5 - 16) 12 BUN (7 - 17 mg/dL) 21 H Creatinine (0.5 - 1.0 mg/dL) 0.8 Estimated GFR (>60 ml/min) > 60 BUN/Creatinine Ratio (7 - 25 %) 26.3 H Glucose (65 - 99 mg/dL) 113 H Calcium (8.4 - 10.2 mg/dL) 9.7 Total Bilirubin (0.2 - 1.3 mg/dL) 0.6 Direct Bilirubin (< 0.4 mg/dL) 0.3 AST (14 - 36 U/L) 32 ALT (9 - 52 U/L) 55 H Alkaline Phosphatase (<127 U/L) 112 Total Protein (6.3 - 8.2 g/dL) 7.4 Albumin (3.5 - 5.0 g/dL) 4.2 Coagulation PT (9.4 - 12.5 SEC) 12.5 INR (0.90 - 1.19) 1.19 Hematology CBC w Diff NO MAN DIFF REQ WBC (4.8 - 10.8 /CUMM) 9.5 RBC (4.20 - 5.40 /CUMM) 4.36 Hgb (12.0 - 16.0 G/DL) 13.9 Hct (37 - 47 %) 41.5 MCV (81.0 - 99.0 FL) 95.2 MCH (27.0 - 31.0 PG) 31.9 H RDW (11.5 - 14.5 %) 15.2 H Plt Count (130 - 400 /CUMM) 314 MPV (7.4 - 10.4 FL) 8.8 Gran % (42.2 - 75.2 %) 72.8 Lymphocytes % (20.5 - 51.1 %) 17.2 L Monocytes % (1.7 - 9.3 %) 7.8 Eosinophils % (0 - 5 %) 1.8 Basophils % (0.0 - 2.0 %) 0.4 Absolute Granulocytes (1.4 - 6.5 /CUMM) 6.9 H Absolute Lymphocytes (1.2 - 3.4 /CUMM) 1.6 Absolute Monocytes (0.10 - 0.60 /CUMM) 0.7 H Absolute Eosinophils (0.0 - 0.7 /CUMM) 0.2 Absolute Basophils (0.0 - 0.2 /CUMM) 0 PUBS MCHC (33.0 - 37.0 G/DL) 33.5 Recent Imaging Studies: PATIENT: NANI ENRIQUEZ PRESENT AGE: 66 PATIENT ACCOUNT NO: [id number] : 49 LOCATION: A ORDERING PHYSICIAN: ERNST OLIVO MD SERVICE DATE: 10/12/16 EXAM TYPE: RAD - XRY-PORTABLE CHEST XRAY EXAMINATION: XR PORTABLE CHEST CLINICAL INFORMATION: Postop. Question aspiration. COMPARISON: 10/12/2016 TECHNIQUE: Portable AP view of the chest was obtained. FINDINGS: Cardiac leads overlie the chest. Low lung volumes. There is a new opacity in the left perihilar region. No pleural effusion or pneumothorax. Central vascular prominence bilaterally. The cardiomediastinal silhouette is unchanged. Degenerative changes at the left shoulder. IMPRESSION: New left perihilar airspace opacity may represent aspiration. DICTATED BY: TRUDY BANGURA MD DATE/TIME DICTATED:10/12/162003 [employer] WORKER:PEE DATE/TIME TRANSCRIBED:10/12/162003 Assessment/Plan Assessment/Plan Postop day 0 status post left tibia fracture IM rodding -Transfer to ICU overnight for monitoring secondary to likely aspiration pneumonia/pneumonitis. Discussed with ICU team. We'll start Unasyn , continuous pulse oximetry, oxygen via nasal cannula titration. Appreciate medical and put -Orthopedically, the patient's fracture is stable, she will remain in the splint and nonweightbearing, she may get out of bed with physical therapy tomorrow. Pain medication as needed. DVT prophylaxis with Lovenox to start tomorrow. Switch to IV protonix. Postop infectious prophylaxis will be covered by the IV Unasyn given for the aspiration pneumonia. DW Dr Olivo Core Measures/Miscellaneous Venous Thromboembolism VTE Risk Factors: Age > 40, Surgery VTE Contraindications: No Contraindications VTE Diagnosis: No VTE Type: NONE VTE Confirmed by (Test): NONE Beta Bina Is Beta Bina a Home Med? No Antibiotics Is Patient on Antibiotics? Yes If Yes: infection
--- NOTE | 2016-10-12 21:45 | Event Note ---
Event Note Event Note: Patient aspirated post surgery and was transfered to ICU. On examination patient looked awake and alert. lung exam was clear. CXR was significant for 'New left perihilar airspace opacity may represent aspiration'. BC x 2 sets were drawn, Resp culture to be obtained. Patient to be started on Unasyn and aspiration precautions. Will monitor temperature closely.
[2016-10-12 22:58] LABS: ABSOLUTE BASOPHIL COUNT 0 /CUMM (0.0-0.2); ABSOLUTE EOSINOPHIL COUNT 0 /CUMM (0.0-0.7); ABSOLUTE GRANULOCYTE CT 7.9 /CUMM (1.4-6.5); ABSOLUTE LYMPH COUNT 0.4 /CUMM (1.2-3.4); ABSOLUTE MONOCYTE COUNT 0.3 /CUMM (0.10-0.60); BASOPHIL % 0.1 % (0.0-2.0); EOSINOPHIL % 0.1 % (0-5); GRANULOCYTE % 91.8 % (42.2-75.2); HEMATOCRIT 37.1 % (37-47); MEAN CORPUSCULAR HGB CONC 33.1 G/DL (33.0-37.0); MEAN CORPUSCULAR VOLUME 96.6 FL (81.0-99.0); MEAN PLATELET VOLUME 8.2 FL (7.4-10.4); PLATELET COUNT 292 /CUMM (130-400); RBC DISTRIBUTION WIDTH 14.8 % (11.5-14.5); RED BLOOD CELL CT 3.84 /CUMM (4.20-5.40); WHITE BLOOD CELL COUNT 8.6 /CUMM (4.8-10.8)
[2016-10-12 23:00] VITALS: BP 101/60
--- NOTE | 2016-10-13 03:10 | NUR ---
RECEIVED PATIENT FROM OR PORT ORIF, ACCOMPANIED BY PACU NURSE VIA STRETCHER, TRANSFERED TO ICU BED AND HOOKED UP TO BEDSIDE MONITOR. CAME IN FROM PACU FOR TELE AND OXYGEN MONITORING. PATIENT IS ALERT AND ORIENTED, PUPILS IS EQUAL AND REACTIVE TO LIGHT, OBEYS COMMAND, MOVING ALL THE EXTREMITIES, C/O POST OP PAIN TO THE LEFT LOWER EXTREMITIES, MEDS GIVEN PER AUG. VITAL SIGNS TAKEN FOLLOWS TEMP=98.9 ORAL, BP 110/68, HR 90'S TO 110'S, RR 10'S TO 20'S. BREATHING SPONTANEOUSLY ON NC AT 4 LITERS/MINUTE, LUNGS IS CLEAR TO DIMINISHED WITH GOOD O2 SATURATION AT 93 TO 96 % AND NOT IN DISTRESS. ABDOMEN IS OBESE BUT SOFT AND HAS GOOD BOWEL SOUND, ON CONSISTENT CARB DIET, DINNER SERVE, PATIENT HAS GOOS APPETITE, EATING WELL WITH NO ASPIRATION. BLADDER IS NOT DISTENDED, GOOD URINE OUTPUT. SKIN IS INTACT. AT 2300+ PATIENT HR STARTING TO BECOME HIGHER AT 110'S, SYSTOLIC BP IS AT 90'S 500 ML OF NS BOLUS WAS GIVEN. PAST 12 MIDNIGHT PATIENT HR IS 110'S TO 120'S, RECTAL TEMP IS 100.3, ANTIPYRETIC GIVEN.
[2016-10-13 03:11] LABS: ABSOLUTE BASOPHIL COUNT 0 /CUMM (0.0-0.2); ABSOLUTE EOSINOPHIL COUNT 0 /CUMM (0.0-0.7); ABSOLUTE GRANULOCYTE CT 8.2 /CUMM (1.4-6.5); ABSOLUTE LYMPH COUNT 0.4 /CUMM (1.2-3.4); ABSOLUTE MONOCYTE COUNT 0.5 /CUMM (0.10-0.60); BASOPHIL % 0 % (0.0-2.0); EOSINOPHIL % 0 % (0-5); GRANULOCYTE % 90.7 % (42.2-75.2); MEAN CORPUSCULAR HGB 32.3 PG (27.0-31.0); MEAN CORPUSCULAR HGB CONC 33.5 G/DL (33.0-37.0); MEAN CORPUSCULAR VOLUME 96.4 FL (81.0-99.0); MEAN PLATELET VOLUME 8.7 FL (7.4-10.4); PLATELET COUNT 242 /CUMM (130-400); RBC DISTRIBUTION WIDTH 14.5 % (11.5-14.5); RED BLOOD CELL CT 3.28 /CUMM (4.20-5.40); WHITE BLOOD CELL COUNT 9.1 /CUMM (4.8-10.8)
[2016-10-13 03:16] LABS: HEMATOCRIT 31.6 % (37-47)
--- NOTE | 2016-10-13 05:46 | PN- Orthopedic ---
See Addendum Subjective Subjective: Patient stable since postop check late last night. She has no complaints. Her pain is controlled. She does not feel short of breath or any chest pain. Objective Vital Signs and I&Os Vital Signs Date Time Temp Pulse Resp B/P B/P Pulse O2 O2 Flow FiO2 Mean Ox Delivery Rate 10/13 0309 99.7 10/13 0159 99.8 10/13 0000 96 Nasal 4.0L Cannula 10/12 2300 100.3 110 14 101/60 96 Nasal 4.0L Cannula 10/12 2257 4.0 10/12 2155 98.7 10/12 1657 98.7 95 16 122/70 98 Nasal 2.0L Cannula 10/12 1600 Nasal 2.0L Cannula 10/12 1406 98.3 92 20 125/82 97 10/12 0800 93 Nasal 2.0L Cannula 10/12 0656 97.5 97 20 90/70 93 Room Air Intake & Output 10/13 0800 10/13 0000 10/12 1600 10/12 0800 10/12 0000 10/11 1600 Intake Total 1100 800 900 400 Output Total 500 450 Balance 600 350 900 400 Intake, IV 850 800 800 200 Intake, Oral 250 0 100 200 Output, Urine 500 450 Patient 164 lb 190 lb Weight Physical Exam: Well-developed well-nourished no apparent distress. HEENT: Atraumatic, extraocular motion intact Neck: Supple, no lymphadenopathy Respiratory: No respiratory distress clear to auscultation bilateral Heart: Mild tachycardia with a regular rhythm no murmur Extremities: No edema LEFT lower extremity dressing in place, splint in place. Neurovascularly intact distally. Wiggling toes. Dorsal pedal pulses 2+. Neuro: Alert and oriented x3 Psych: Mood affect normal, normal memory normal judgment. Skin: Warm and dry, no rash on exposed skin Results Last 48 Hours of Labs: Laboratory Tests 10/13 10/12 0200 2340 Chemistry Sodium (137 - 145 mmol/L) 138 Potassium (3.5 - 5.1 mmol/L) 4.5 Chloride (98 - 107 mmol/L) 104 Carbon Dioxide (22 - 30 mmol/L) 24 Anion Gap (5 - 16) 10 Troponin I (< 0.11 ng/ml) < 0.01 Hematology CBC w Diff MAN DIFF ORDERED WBC (4.8 - 10.8 /CUMM) 9.1 RBC (4.20 - 5.40 /CUMM) 3.28 L Hgb (12.0 - 16.0 G/DL) 10.6 L Hct (37 - 47 %) 31.6 L MCV (81.0 - 99.0 FL) 96.4 MCH (27.0 - 31.0 PG) 32.3 H RDW (11.5 - 14.5 %) 14.5 Plt Count (130 - 400 /CUMM) 242 MPV (7.4 - 10.4 FL) 8.7 Gran % (42.2 - 75.2 %) 90.7 H Lymphocytes % (20.5 - 51.1 %) 4.0 L Monocytes % (1.7 - 9.3 %) 5.3 Eosinophils % (0 - 5 %) 0 Basophils % (0.0 - 2.0 %) 0 L Absolute Granulocytes (1.4 - 6.5 /CUMM) 8.2 H Segmented Neutrophils (42.2 - 75.2 %) 85 H Band Neutrophils (0.0 - 5.0 %) 5 Absolute Lymphocytes (1.2 - 3.4 /CUMM) 0.4 L Lymphocytes (20.5 - 51.1 %) 6 L Monocytes (1.7 - 9.3 %) 3 Absolute Monocytes (0.10 - 0.60 /CUMM) 0.5 Absolute Eosinophils (0.0 - 0.7 /CUMM) 0 Absolute Basophils (0.0 - 0.2 /CUMM) 0 Metamyelocytes (0.0 - 1.0 %) 1 Platelet Estimate (ADEQUATE) ADEQUATE Normochromic RBCs VERIFIED Poikilocytosis 1+ Ovalocytes 1+ Elliptocytes FEW PUBS MCHC (33.0 - 37.0 G/DL) 33.5 Other Body Source Fld Total RBCs Counted (%) 100 18 10/12 2220 1300 Chemistry Sodium (137 - 145 mmol/L) 139 Potassium (3.5 - 5.1 mmol/L) 4.9 Chloride (98 - 107 mmol/L) 101 Carbon Dioxide (22 - 30 mmol/L) 27 Anion Gap (5 - 16) 12 BUN (7 - 17 mg/dL) 27 H Creatinine (0.5 - 1.0 mg/dL) 1.3 H Estimated GFR (>60 ml/min) 41 L BUN/Creatinine Ratio (7 - 25 %) 20.8 Troponin I (< 0.11 ng/ml) < 0.01 Hematology CBC w Diff MAN DIFF ORDERED WBC (4.8 - 10.8 /CUMM) 8.6 RBC (4.20 - 5.40 /CUMM) 3.84 L Hgb (12.0 - 16.0 G/DL) 12.3 Hct (37 - 47 %) 37.1 MCV (81.0 - 99.0 FL) 96.6 MCH (27.0 - 31.0 PG) 32.0 H RDW (11.5 - 14.5 %) 14.8 H Plt Count (130 - 400 /CUMM) 292 MPV (7.4 - 10.4 FL) 8.2 Gran % (42.2 - 75.2 %) 91.8 H Lymphocytes % (20.5 - 51.1 %) 4.2 L Monocytes % (1.7 - 9.3 %) 3.8 Eosinophils % (0 - 5 %) 0.1 Basophils % (0.0 - 2.0 %) 0.1 Absolute Granulocytes (1.4 - 6.5 /CUMM) 7.9 H Segmented Neutrophils (42.2 - 75.2 %) 68 Band Neutrophils (0.0 - 5.0 %) 21 H Absolute Lymphocytes (1.2 - 3.4 /CUMM) 0.4 L Lymphocytes (20.5 - 51.1 %) 9 L Monocytes (1.7 - 9.3 %) 2 Absolute Monocytes (0.10 - 0.60 /CUMM) 0.3 Absolute Eosinophils (0.0 - 0.7 /CUMM) 0 Absolute Basophils (0.0 - 0.2 /CUMM) 0 Platelet Estimate (ADEQUATE) ADEQUATE Polychromasia 1+ Anisocytosis 1+ Macrocytic Cells 1+ PUBS MCHC (33.0 - 37.0 G/DL) 33.1 18 10/12 1200 0700 Blood Gas pH (7.35 - 7.45 PH) 7.33 L pCO2 (35 - 45 TORR) 46 H pO2 (80 - 100 TORR) 100 HCO3 (21 - 28 MEQ/L) 24 ABG O2 Sat (Measured) (>96.0 %) 97.0 Carboxyhemoglobin (1.5 - 5.0 %) 0.5 L O2 Concentration % 2L O2 Delivery Method NC Chemistry Sodium (137 - 145 mmol/L) 139 Potassium (3.5 - 5.1 mmol/L) 5.7 H Chloride (98 - 107 mmol/L) 100 Carbon Dioxide (22 - 30 mmol/L) 24 Anion Gap (5 - 16) 16 BUN (7 - 17 mg/dL) 30 H Creatinine (0.5 - 1.0 mg/dL) 1.9 H Estimated GFR (>60 ml/min) 26 L BUN/Creatinine Ratio (7 - 25 %) 15.8 Hematology CBC w Diff NO MAN DIFF REQ WBC (4.8 - 10.8 /CUMM) 11.8 H RBC (4.20 - 5.40 /CUMM) 3.94 L Hgb (12.0 - 16.0 G/DL) 12.6 Hct (37 - 47 %) 38.2 MCV (81.0 - 99.0 FL) 96.9 MCH (27.0 - 31.0 PG) 32.0 H RDW (11.5 - 14.5 %) 14.8 H Plt Count (130 - 400 /CUMM) 315 MPV (7.4 - 10.4 FL) 8.3 Gran % (42.2 - 75.2 %) 85.4 H Lymphocytes % (20.5 - 51.1 %) 5.4 L Monocytes % (1.7 - 9.3 %) 9.1 Eosinophils % (0 - 5 %) 0 Basophils % (0.0 - 2.0 %) 0.1 Absolute Granulocytes (1.4 - 6.5 /CUMM) 10.1 H Absolute Lymphocytes (1.2 - 3.4 /CUMM) 0.6 L Absolute Monocytes (0.10 - 0.60 /CUMM) 1.1 H Absolute Eosinophils (0.0 - 0.7 /CUMM) 0 Absolute Basophils (0.0 - 0.2 /CUMM) 0 PUBS MCHC (33.0 - 37.0 G/DL) 33.0 Miscellaneous Phlebotomy Draw Site RIGHT RADIAL 10/11 10/11 0890 1620 Chemistry Sodium (137 - 145 mmol/L) 138 Potassium (3.5 - 5.1 mmol/L) 4.4 Chloride (98 - 107 mmol/L) 99 Carbon Dioxide (22 - 30 mmol/L) 27 Anion Gap (5 - 16) 12 BUN (7 - 17 mg/dL) 21 H Creatinine (0.5 - 1.0 mg/dL) 0.8 Estimated GFR (>60 ml/min) > 60 BUN/Creatinine Ratio (7 - 25 %) 26.3 H Glucose (65 - 99 mg/dL) 113 H Calcium (8.4 - 10.2 mg/dL) 9.7 Total Bilirubin (0.2 - 1.3 mg/dL) 0.6 Direct Bilirubin (< 0.4 mg/dL) 0.3 AST (14 - 36 U/L) 32 ALT (9 - 52 U/L) 55 H Alkaline Phosphatase (<127 U/L) 112 Total Protein (6.3 - 8.2 g/dL) 7.4 Albumin (3.5 - 5.0 g/dL) 4.2 Coagulation PT (9.4 - 12.5 SEC) 12.5 INR (0.90 - 1.19) 1.19 Hematology CBC w Diff NO MAN DIFF REQ WBC (4.8 - 10.8 /CUMM) 9.5 RBC (4.20 - 5.40 /CUMM) 4.36 Hgb (12.0 - 16.0 G/DL) 13.9 Hct (37 - 47 %) 41.5 MCV (81.0 - 99.0 FL) 95.2 MCH (27.0 - 31.0 PG) 31.9 H RDW (11.5 - 14.5 %) 15.2 H Plt Count (130 - 400 /CUMM) 314 MPV (7.4 - 10.4 FL) 8.8 Gran % (42.2 - 75.2 %) 72.8 Lymphocytes % (20.5 - 51.1 %) 17.2 L Monocytes % (1.7 - 9.3 %) 7.8 Eosinophils % (0 - 5 %) 1.8 Basophils % (0.0 - 2.0 %) 0.4 Absolute Granulocytes (1.4 - 6.5 /CUMM) 6.9 H Absolute Lymphocytes (1.2 - 3.4 /CUMM) 1.6 Absolute Monocytes (0.10 - 0.60 /CUMM) 0.7 H Absolute Eosinophils (0.0 - 0.7 /CUMM) 0.2 Absolute Basophils (0.0 - 0.2 /CUMM) 0 PUBS MCHC (33.0 - 37.0 G/DL) 33.5 Assessment/Plan Assessment/Plan Postop day 1 status post left tibia IM [place], subsequent aspiration pneumonia intraoperatively -Orthopedically stable -Nonweightbearing left lower extremity -Out of bed with physical therapy -Lovenox for DVT prophylaxis starting today -Continue splint -Dressing change tomorrow -Unasyn being given for aspiration pneumonia, covers postop prophylactic antibiotics as well -GI prophylaxis -DC IV fluids when tolerating by mouth Aspiration pneumonia: No deterioration of condition overnight. Being managed by medicine, appreciate medical input. IV Unasyn, supplemental oxygen, incentive spirometer to bedside. Follow blood cultures and sputum culture Core Measures/Miscellaneous Venous Thromboembolism VTE Risk Factors: Age > 40, Surgery VTE Contraindications: No Contraindications VTE Diagnosis: No VTE Type: NONE VTE Confirmed by (Test): NONE Beta Bina Is Beta Bina a Home Med? No Antibiotics Is Patient on Antibiotics? Yes If Yes: infection
[2016-10-13 07:00] VITALS: BP 92/48
[2016-10-13 08:00] VITALS: BP 100/60
--- NOTE | 2016-10-13 08:01 | PN- Resident CRCU ---
INGRIS FORMAN,[facility] 10/13/16 0756: Subjective HPI/CRCU Issues: Ms. Girard was seen and examined this morning. Resting comfortably in bed. She is alert and oriented 1. Patient is currently comfortable. Endorses mild abdominal pain. Attributes this to having to use washroom. She is aware why she has been brought into the hospital. This morning she states that her pain in her left lower extremity is well controlled. She denies any coughing or sputum production. She denies any fever, chills, nausea, vomiting. Incentive spirometer at bedside, she's been encouraged to use this. Objective Vital Signs & I&O Last 8 Hrs of Vitals and I&O: T: 99.3 BP: 100/60 HR: 110 Pulse Ox 98% on 4.0 L Intake & Output 10/13 0800 Intake Total 1250 Output Total 550 Balance 700 Intake, IV 1000 Intake, Oral 250 Output, Urine 550 Exam General Appearance: well developed/nourished, no apparent distress, alert, awake Respiratory: normal breath sounds, chest non-tender (Limited Exam due to mobility), no respiratory distress Cardiovascular: regular rate/rhythm Gastrointestinal: normal bowel sounds, soft, non-tender Extremities: normal inspection, normal capillary refill, Left Lower Extemity dressing in place. Foot warm, Perfusing Well. Pulses 2+ Cranial Nerves: normal hearing, normal speech Skin: intact, normal color Current Medications: Current Medications Sig/Jakob Start time Last Medication Dose Route Stop Time Status Admin Acetaminophen 1,000 MG .STK-MED ONE 10/12 1651 DC IV 10/12 1652 Acetaminophen 1,000 MG Q6H 10/11 1815 DC 10/13 N/A 1 UNIT IV 10/13 0643 0555 Ampicillin Sodium/ 1,500 MG Q6 10/12 2359 AC 10/13 Sulbactam Sodium IV 0554 Sodium Chloride 100 ML Aripiprazole 5 MG DAILY 10/12 1000 AC 10/12 PO 1001 Atorvastatin Calcium 20 MG 1700 10/12 1700 AC 10/12 PO 2153 Bisacodyl 10 MG DAILY PRN 10/11 181 AC PA Calcium Carbonate 500 MG Q6-PRN PRN 10/11 1815 AC PO Cefazolin Sodium 2,000 MG IQ8 10/13 0000 CAN Sodium Chloride 100 ML IV 10/13 0829 Dexamethasone 4 MG .STK-MED ONE 10/12 1651 DC IM 10/12 1652 Dextrose/Sodium 1,000 ML Q10H 10/11 1815 AC 10/13 Chloride IV 0158 Docusate Sodium 100 MG BID 10/11 2200 AC 10/12 PO 2153 Enoxaparin Sodium 40 MG DAILY 10/13 1000 AC SC Fentanyl Citrate 250 MCG .STK-MED ONE 10/12 1650 DC IM 10/12 1651 Hydromorphone HCl 2 MG .STK-MED ONE 10/12 1650 DC IM 10/12 1651 Losartan Potassium 50 MG DAILY 10/13 1000 CAN PO Magnesium Hydroxide 30 ML DAILY NEEDED PRN 10/11 1815 AC PO Midazolam HCl 2 MG .STK-MED ONE 10/12 1650 DC IM 10/12 1651 Morphine Sulfate 2 MG Q3P PRN 10/11 1815 AC 10/12 IV 1242 Morphine Sulfate 4 MG Q3P PRN 10/11 1815 AC 10/11 IV 2211 Omeprazole 20 MG AT BEDTIME 10/11 2215 DC 10/11 PO 2210 Ondansetron HCl 8 MG .STK-MED ONE 10/12 1651 DC IM 10/12 1652 Pantoprazole Sodium 40 MG DAILY 10/12 2100 AC 10/12 IV 2153 Paroxetine HCl 40 MG DAILY 10/12 1000 AC 10/12 PO 1002 Sodium Chloride 500 ML BOLUS ONE 10/12 2245 DC 10/12 IV 10/12 2344 2259 Impression/Plan Impression/Problem List Impression: Ms Girard is a 66-year-old female with a past medical history of mental retardation (since ), hypertension, anxiety, obsessive-compulsive disorder, hyperlipidemia, GERD who currently resides in an assisted living in a separate apartment with 24-hour home caregiver who presented to the [facility] after she had a mechanical fall. On 10/12/2016 she was taken in for orthopedic procedure: IM abril. She is currently admitted to intensive care unit for close monitoring after aspiration following her procedure. Post operation 1. Aspiration Pneumonia Patient is currently being treated with Unasyn 1500 mg Q6 Covered for the next 48-72 hours. Currently afebrile and white count 9100. Consider repeat chest x-ray on 10/14/2016 for evaluation for worsening consolidation vs atelectasis. Once patient improves by mouth intake we can consider discontinuing IV fluids. Consider resuming all home medications. Hold ARB for now. Status post left tibia rodding Continue on current pain regimen. Out of bed to chair with physical therapy Dressing will be changed tomorrow. Colace while patient remains on Opiod pain medication. DVT prophylaxis Lovenox Code Full code Problem List: 1. Comminuted fracture of shaft of tibia 2. Comminuted fracture of shaft of fibula 3. Mental retardation 4. Hyperlipidemia Pain Ratin Tomorrow's Labs & Rationales: CBC ICU Bundle Plan DVT/Prophylaxis: pharmacological SOFIE GOMEZ MD 10/13/16 1100: Attending MD Review Statement Attending Sign Off Attending Cosign Statement: I have: examined this patient, reviewed [employer] E[employer] data, personally reviewd images, discussd w/resident/PA/ENVIRONMENTAL ISSUES INSTRUCTOR, discussed mgmt plan w/pt, agreed w/resident/ PA/ENVIRONMENTAL ISSUES INSTRUCTOR, amended to note. Other Findings: Medicine consult note: Patient seen and examined, much more awake this morning. She says that she's doing okay. Last evening after the surgery she aspirated intraoperatively and was transferred to ICU for closer monitoring. She did have a fever spike and was hypoxic. This morning she had a low-grade temp of 99 but denies any shortness of breath. Still requiring oxygen. She was started on Unasyn. Vital Signs Date Time Temp Pulse Resp B/P B/P Pulse O2 O2 Flow FiO2 Mean Ox Delivery Rate 10/13 0800 98 Nasal 4.0L Cannula 10/13 0800 99.3 110 18 100/60 98 Nasal 4.0L Cannula 10/13 0700 99.6 106 17 92/48 97 Nasal 4.0L Cannula 10/13 0657 99.7 10/13 0555 100.5 10/13 0309 99.7 10/13 0159 99.8 10/13 0000 96 Nasal 4.0L Cannula 10/12 2300 100.3 110 14 101/60 96 Nasal 4.0L Cannula 10/12 2257 4.0 10/12 2155 98.7 10/12 1657 98.7 95 16 122/70 98 Nasal 2.0L Cannula 10/12 1600 Nasal 2.0L Cannula 10/12 1406 98.3 92 20 125/82 97 on exam; awake, nad. cv; s1,s2, rrr resp; mild crackles at left base. abd; soft, nt, bs+ ext; lle is warpped in ashley wrap. Laboratory Tests 10/13 10/12 0200 2340 Chemistry Sodium (137 - 145 mmol/L) 138 Potassium (3.5 - 5.1 mmol/L) 4.5 Chloride (98 - 107 mmol/L) 104 Carbon Dioxide (22 - 30 mmol/L) 24 Anion Gap (5 - 16) 10 Troponin I (< 0.11 ng/ml) < 0.01 Hematology CBC w Diff MAN DIFF ORDERED WBC (4.8 - 10.8 /CUMM) 9.1 RBC (4.20 - 5.40 /CUMM) 3.28 L Hgb (12.0 - 16.0 G/DL) 10.6 L Hct (37 - 47 %) 31.6 L MCV (81.0 - 99.0 FL) 96.4 MCH (27.0 - 31.0 PG) 32.3 H RDW (11.5 - 14.5 %) 14.5 Plt Count (130 - 400 /CUMM) 242 MPV (7.4 - 10.4 FL) 8.7 Gran % (42.2 - 75.2 %) 90.7 H Lymphocytes % (20.5 - 51.1 %) 4.0 L Monocytes % (1.7 - 9.3 %) 5.3 Eosinophils % (0 - 5 %) 0 Basophils % (0.0 - 2.0 %) 0 L Absolute Granulocytes (1.4 - 6.5 /CUMM) 8.2 H Segmented Neutrophils (42.2 - 75.2 %) 85 H Band Neutrophils (0.0 - 5.0 %) 5 Absolute Lymphocytes (1.2 - 3.4 /CUMM) 0.4 L Lymphocytes (20.5 - 51.1 %) 6 L Monocytes (1.7 - 9.3 %) 3 Absolute Monocytes (0.10 - 0.60 /CUMM) 0.5 Absolute Eosinophils (0.0 - 0.7 /CUMM) 0 Absolute Basophils (0.0 - 0.2 /CUMM) 0 Metamyelocytes (0.0 - 1.0 %) 1 Platelet Estimate (ADEQUATE) ADEQUATE Normochromic RBCs VERIFIED Poikilocytosis 1+ Ovalocytes 1+ Elliptocytes FEW PUBS MCHC (33.0 - 37.0 G/DL) 33.5 Other Body Source Fld Total RBCs Counted (%) 100 10/12 10/12 2220 1300 Chemistry Sodium (137 - 145 mmol/L) 139 Potassium (3.5 - 5.1 mmol/L) 4.9 Chloride (98 - 107 mmol/L) 101 Carbon Dioxide (22 - 30 mmol/L) 27 Anion Gap (5 - 16) 12 BUN (7 - 17 mg/dL) 27 H Creatinine (0.5 - 1.0 mg/dL) 1.3 H Estimated GFR (>60 ml/min) 41 L BUN/Creatinine Ratio (7 - 25 %) 20.8 Troponin I (< 0.11 ng/ml) < 0.01 Hematology CBC w Diff MAN DIFF ORDERED WBC (4.8 - 10.8 /CUMM) 8.6 RBC (4.20 - 5.40 /CUMM) 3.84 L Hgb (12.0 - 16.0 G/DL) 12.3 Hct (37 - 47 %) 37.1 MCV (81.0 - 99.0 FL) 96.6 MCH (27.0 - 31.0 PG) 32.0 H RDW (11.5 - 14.5 %) 14.8 H Plt Count (130 - 400 /CUMM) 292 MPV (7.4 - 10.4 FL) 8.2 Gran % (42.2 - 75.2 %) 91.8 H Lymphocytes % (20.5 - 51.1 %) 4.2 L Monocytes % (1.7 - 9.3 %) 3.8 Eosinophils % (0 - 5 %) 0.1 Basophils % (0.0 - 2.0 %) 0.1 Absolute Granulocytes (1.4 - 6.5 /CUMM) 7.9 H Segmented Neutrophils (42.2 - 75.2 %) 68 Band Neutrophils (0.0 - 5.0 %) 21 H Absolute Lymphocytes (1.2 - 3.4 /CUMM) 0.4 L Lymphocytes (20.5 - 51.1 %) 9 L Monocytes (1.7 - 9.3 %) 2 Absolute Monocytes (0.10 - 0.60 /CUMM) 0.3 Absolute Eosinophils (0.0 - 0.7 /CUMM) 0 Absolute Basophils (0.0 - 0.2 /CUMM) 0 Platelet Estimate (ADEQUATE) ADEQUATE Polychromasia 1+ Anisocytosis 1+ Macrocytic Cells 1+ PUBS MCHC (33.0 - 37.0 G/DL) 33.1 10/12 1200 Blood Gas pH (7.35 - 7.45 PH) 7.33 L pCO2 (35 - 45 TORR) 46 H pO2 (80 - 100 TORR) 100 HCO3 (21 - 28 MEQ/L) 24 ABG O2 Sat (Measured) (>96.0 %) 97.0 Carboxyhemoglobin (1.5 - 5.0 %) 0.5 L O2 Concentration % 2L O2 Delivery Method NC Miscellaneous Phlebotomy Draw Site RIGHT RADIAL Assessment and recommendations: 66 y/o F with pmh sig for mental retardation since , tension, anxiety, obsessive-compulsive disorder, hyperlipidemia, GERD admitted with a mechanical fall and found to have left-sided tibia-fibula fracture, status post IM rodding postop day 1 today. Course complicated by patient developing aspiration pneumonia intraoperatively and then subsequently moved to ICU. Currently she has a low-grade temp of 99 and still requiring oxygen. She was started on Unasyn. Overall doing better therefore she can be downgraded to the floor. Please add creatinine the morning labs as she did have a bump in her creatinine yesterday. Hyperkalemia has resolved. Pain management seems to be adequate. Continue current regimen. Continue the patient on other current medications. She should be on a bowel regimen while on narcotics. DVT prophylaxis: Lovenox. Thank you will follow along with you
--- NOTE | 2016-10-13 10:15 | NUR ---
Patient did well getting OOB w/ assist x2 w/ PT using bed robledo in the chair. 1008: O2 sat 99-100% on 4L nasal cannula O2 turned down to 2L NC satting 97%. No distress noted. Patient breathing better OOB and in chair. Continuing to monitor for further titration.
--- NOTE | 2016-10-13 13:28 | RADIOLOGY REPORT ---
EXAMINATION: XR PORTABLE CHEST CLINICAL INFORMATION: Follow-up study. Presumptive diagnosis of aspiration pneumonia. COMPARISON: Prior chest x-rays dated 10/12/2016, 02/24/2013. TECHNIQUE: Portable AP semierect view of the chest was obtained. FINDINGS: The cardiomediastinal silhouette is normal. Low lung volumes are seen with much improvement in the previously seen bilateral perihilar and mid lung opacities with only some vascular indistinctness and trace left midlung opacity remaining. The left hemidiaphragm is obscured on the current examination, likely due to technical factors and overlapping soft tissues. Follow-up is recommended to exclude small effusion. Bony structures grossly unremarkable. IMPRESSION: Improved aeration in the lungs when compared to the recent prior exam.
--- NOTE | 2016-10-13 14:35 | RADIOLOGY REPORT ---
EXAMINATION: XR TIBIA AND FIBULA, LEFT CLINICAL INFORMATION: Left tibia and fibula rodding. COMPARISON: Plain films dated 10/11/2016. TECHNIQUE: Fluoroscopic equipment was dedicated to the operating room for the performance of an open reduction internal fixation of a left tibial fracture. 5 spot films were obtained and are submitted for review. FLUOROSCOPY TIME: 1. Minute 31 seconds. FINDINGS: Images demonstrate placement of a longstem intramedullary phill with proximal and distal interlocking screw, transfixing an oblique fracture of the mid tibia. Comminuted fracture of the mid fibula is also seen, similar to prior exam. IMPRESSION: Status post open reduction internal fixation of right tibial fracture. Comminuted fracture of the mid fibular shaft.
[2016-10-13 16:00] VITALS: BP 102/60
[2016-10-13 23:00] VITALS: BP 118/68
--- NOTE | 2016-10-14 02:06 | NUR ---
LATE ENTRY FOR 10/13/16 2300 PT ARRIVED TO 2NB FROM THE ICU. PT IS AOX2. OXYGEN IN USE. LLE WITH CAST/LINDA WRAP INTACT. PT SETTLED INTO ROOM. BED ALARM IN USE.
[2016-10-14 06:53] VITALS: BP 124/74
--- NOTE | 2016-10-14 07:51 | PN- Orthopedic ---
See Addendum Subjective Subjective: Patient comfortable, pain is controlled. No acute events overnight. She was downgraded to the general medicine/general surgical floor from the ICU as she has been doing well after her aspiration pneumonia/pneumonitis. She denies any shortness of breath or chest pain, no productive cough. Objective Vital Signs and I&Os Vital Signs Date Time Temp Pulse Resp B/P B/P Pulse O2 O2 Flow FiO2 Mean Ox Delivery Rate 10/14 0653 98.1 98 18 124/74 99 Nasal 1.0L Cannula 10/14 0000 99 Nasal 1.0L Cannula 10/13 2300 98.2 102 18 118/68 99 Nasal 1.0L Cannula 10/13 1600 97 Nasal 1.0L Cannula 10/13 1600 97.8 102 20 102/60 95 Nasal 1.0L Cannula 10/13 0800 98 Nasal 4.0L Cannula 10/13 0800 99.3 110 18 100/60 98 Nasal 4.0L Cannula Intake & Output 10/14 0800 10/14 0000 10/13 1600 10/13 0800 10/13 0000 10/12 1600 Intake Total 240 256 497 0195 1100 800 Output Total 350 250 600 550 500 450 Balance -110 -30 289 700 600 350 Intake, IV 097 493 7873 850 800 Intake, Oral 120 220 500 250 250 0 Output, Urine 350 250 600 550 500 450 Patient 163 lb Weight Physical Exam: Well-developed well-nourished no apparent distress. HEENT: Atraumatic, extraocular motion intact Neck: Supple, no lymphadenopathy Heart: Heart rate around 100 bpm, regular rhythm Respiratory: No respiratory distress, lungs clear to auscultation bilateral Abdomen: Obese, soft nontender Extremities: No edema, no calf pain Left lower extremity, splint in place, the dressing removed, dressing with mild amount of dried bloody discharge at the anterior knee. Incision is intact, no signs of infection. Phillip in place. Dry sterile dressing applied. Neurovascularly intact distally. Anterior compartment soft Wiggles toes. Dorsal pedal pulse intact 2+ Neuro: Alert and oriented Psych: Mood affect normal, normal memory normal judgment. Skin: Warm and dry, no rash on exposed skin Results Last 48 Hours of Labs: Laboratory Tests 10/14 10/13 10/12 0720 0200 2340 Chemistry Sodium (137 - 145 mmol/L) Pending 138 Potassium (3.5 - 5.1 mmol/L) Pending 4.5 Chloride (98 - 107 mmol/L) Pending 104 Carbon Dioxide (22 - 30 mmol/L) Pending 24 Anion Gap (5 - 16) Pending 10 BUN (7 - 17 mg/dL) Pending 18 H Creatinine (0.5 - 1.0 mg/dL) Pending 0.8 Estimated GFR (>60 ml/min) > 60 BUN/Creatinine Ratio Pending Troponin I (< 0.11 ng/ml) < 0.01 Hematology CBC w Diff Pending MAN DIFF ORDERED WBC (4.8 - 10.8 /CUMM) Pending 9.1 RBC (4.20 - 5.40 /CUMM) Pending 3.28 L Hgb (12.0 - 16.0 G/DL) Pending 10.6 L Hct (37 - 47 %) Pending 31.6 L MCV (81.0 - 99.0 FL) Pending 96.4 MCH (27.0 - 31.0 PG) Pending 32.3 H RDW (11.5 - 14.5 %) Pending 14.5 Plt Count (130 - 400 /CUMM) Pending 242 MPV (7.4 - 10.4 FL) Pending 8.7 Gran % (42.2 - 75.2 %) 90.7 H Lymphocytes % (20.5 - 51.1 %) 4.0 L Monocytes % (1.7 - 9.3 %) 5.3 Eosinophils % (0 - 5 %) 0 Basophils % (0.0 - 2.0 %) 0 L Absolute Granulocytes (1.4 - 6.5 /CUMM) 8.2 H Segmented Neutrophils (42.2 - 75.2 %) 85 H Band Neutrophils (0.0 - 5.0 %) 5 Absolute Lymphocytes (1.2 - 3.4 /CUMM) 0.4 L Lymphocytes (20.5 - 51.1 %) 6 L Monocytes (1.7 - 9.3 %) 3 Absolute Monocytes (0.10 - 0.60 /CUMM) 0.5 Absolute Eosinophils (0.0 - 0.7 /CUMM) 0 Absolute Basophils (0.0 - 0.2 /CUMM) 0 Metamyelocytes (0.0 - 1.0 %) 1 Platelet Estimate (ADEQUATE) ADEQUATE Normochromic RBCs VERIFIED Poikilocytosis 1+ Ovalocytes 1+ Elliptocytes FEW PUBS MCHC (33.0 - 37.0 G/DL) Pending 33.5 Other Body Source Fld Total RBCs Counted (%) 100 10/12 10/12 2220 1300 Chemistry Sodium (137 - 145 mmol/L) 139 Potassium (3.5 - 5.1 mmol/L) 4.9 Chloride (98 - 107 mmol/L) 101 Carbon Dioxide (22 - 30 mmol/L) 27 Anion Gap (5 - 16) 12 BUN (7 - 17 mg/dL) 27 H Creatinine (0.5 - 1.0 mg/dL) 1.3 H Estimated GFR (>60 ml/min) 41 L BUN/Creatinine Ratio (7 - 25 %) 20.8 Troponin I (< 0.11 ng/ml) < 0.01 Hematology CBC w Diff MAN DIFF ORDERED WBC (4.8 - 10.8 /CUMM) 8.6 RBC (4.20 - 5.40 /CUMM) 3.84 L Hgb (12.0 - 16.0 G/DL) 12.3 Hct (37 - 47 %) 37.1 MCV (81.0 - 99.0 FL) 96.6 MCH (27.0 - 31.0 PG) 32.0 H RDW (11.5 - 14.5 %) 14.8 H Plt Count (130 - 400 /CUMM) 292 MPV (7.4 - 10.4 FL) 8.2 Gran % (42.2 - 75.2 %) 91.8 H Lymphocytes % (20.5 - 51.1 %) 4.2 L Monocytes % (1.7 - 9.3 %) 3.8 Eosinophils % (0 - 5 %) 0.1 Basophils % (0.0 - 2.0 %) 0.1 Absolute Granulocytes (1.4 - 6.5 /CUMM) 7.9 H Segmented Neutrophils (42.2 - 75.2 %) 68 Band Neutrophils (0.0 - 5.0 %) 21 H Absolute Lymphocytes (1.2 - 3.4 /CUMM) 0.4 L Lymphocytes (20.5 - 51.1 %) 9 L Monocytes (1.7 - 9.3 %) 2 Absolute Monocytes (0.10 - 0.60 /CUMM) 0.3 Absolute Eosinophils (0.0 - 0.7 /CUMM) 0 Absolute Basophils (0.0 - 0.2 /CUMM) 0 Platelet Estimate (ADEQUATE) ADEQUATE Polychromasia 1+ Anisocytosis 1+ Macrocytic Cells 1+ PUBS MCHC (33.0 - 37.0 G/DL) 33.1 10/12 1200 Blood Gas pH (7.35 - 7.45 PH) 7.33 L pCO2 (35 - 45 TORR) 46 H pO2 (80 - 100 TORR) 100 HCO3 (21 - 28 MEQ/L) 24 ABG O2 Sat (Measured) (>96.0 %) 97.0 Carboxyhemoglobin (1.5 - 5.0 %) 0.5 L O2 Concentration % 2L O2 Delivery Method NC Miscellaneous Phlebotomy Draw Site RIGHT RADIAL Assessment/Plan Assessment/Plan Postoperative day 2 status post left tibia IM rodding for comminuted fracture -Orthopedically stable, nonweightbearing, out of bed with physical therapy, continue splinting. She is stable for discharge from an orthopedic standpoint. -Dressing changes as needed -Lovenox 40 mg subcutaneous for DVT prophylaxis Aspiration pneumonia/pneumonitis: Appreciate medicine follow, chest x-ray later today, follow a.m. labs, continue to wean oxygen, IV antibiotics continued, patient may be discharged to [facility]dc facility when medicine feels appropriate. Core Measures/Miscellaneous Venous Thromboembolism VTE Risk Factors: Age > 40, Surgery VTE Contraindications: No Contraindications VTE Diagnosis: No VTE Type: NONE VTE Confirmed by (Test): NONE Beta Bina Is Beta Bina a Home Med? No Antibiotics Is Patient on Antibiotics? Yes If Yes: infection
[2016-10-14 08:01] LABS: ABSOLUTE BASOPHIL COUNT 0 /CUMM (0.0-0.2); ABSOLUTE EOSINOPHIL COUNT 0.2 /CUMM (0.0-0.7); ABSOLUTE GRANULOCYTE CT 4.1 /CUMM (1.4-6.5); ABSOLUTE LYMPH COUNT 1.5 /CUMM (1.2-3.4); ABSOLUTE MONOCYTE COUNT 0.6 /CUMM (0.10-0.60); BASOPHIL % 0.7 % (0.0-2.0); EOSINOPHIL % 3.4 % (0-5); HEMATOCRIT 27.9 % (37-47); MEAN CORPUSCULAR HGB 32.3 PG (27.0-31.0); MEAN CORPUSCULAR HGB CONC 33.9 G/DL (33.0-37.0); MEAN CORPUSCULAR VOLUME 95.2 FL (81.0-99.0); MEAN PLATELET VOLUME 8.1 FL (7.4-10.4); PLATELET COUNT 244 /CUMM (130-400); RBC DISTRIBUTION WIDTH 14.3 % (11.5-14.5); RED BLOOD CELL CT 2.93 /CUMM (4.20-5.40); WHITE BLOOD CELL COUNT 6.5 /CUMM (4.8-10.8)
--- NOTE | 2016-10-14 09:38 | PN- Medicine Consult ---
STUART FORMAN,SHAILESH 10/14/16 0924: Assessment/Plan Assessment/Plan Assessment: 66-year-old F who is mental retardation since , history of hypertension, obsessive-compulsive disorder, hyperlipidemia, GERD ,osteoporosis on bisphosphnate therapy presented to the [facility] after having a mechanical fall which resulted in a displaced fracture of the tibia and fibula. Post procedure, aspirated, was transferred to ICU for closer monitoring and started on abx. She did desaturate in ICU and was placed on oxygen. Fracture Post operative day 2 for left tibia IM phill pain control per surgical service Aspiration PNA Has remained afebrile overnight O2 saturations, 99% 1L would titrated off and watch oxygen levels. Keep >92% May switch abx to augmentin to complete 7 day course Acute Blood Loss Anemia HH seems to be trending downwards. this morning 9.4/27.9. would continue to monitor, keep HH >8/24 HTN BP 124/74 would restart JUSTYN inhibitor. K 4.0 this morning Constipation Monitor for BM, may require suppository Hyperkalemia resolved RAUL resolved HLD continue lipitor GERD continue prilosec Depression continue Abilify, Paxil DVT ppx lovenox Plan: See Above Problem List: 1. Hyperlipidemia 2. Hypertension 3. GERD (gastroesophageal reflux disease) 4. Mental retardation 5. Comminuted fracture of shaft of tibia 6. Comminuted fracture of shaft of fibula 7. Aspiration pneumonia Subjective Subjective: Eating breakfast, more talkative this morning. No complaints. Review of Systems Constitutional: Reports: see HPI. Objective Last 24 Hrs of Vital Signs/I&O Vital Signs Date Time Temp Pulse Resp B/P B/P Pulse O2 O2 Flow FiO2 Mean Ox Delivery Rate 10/14 0800 98 Nasal 1.0L Cannula 10/14 0653 98.1 98 18 124/74 99 Nasal 1.0L Cannula 10/14 0000 99 Nasal 1.0L Cannula 10/13 2300 98.2 102 18 118/68 99 Nasal 1.0L Cannula 10/13 1600 97 Nasal 1.0L Cannula 10/13 1600 97.8 102 20 102/60 95 Nasal 1.0L Cannula Intake & Output 10/14 1600 10/14 0800 10/14 0000 Intake Total 240 220 Output Total 350 250 Balance -110 -30 Intake, IV 120 Intake, Oral 120 220 Output, Urine 350 250 Physical Exam General Appearance: well developed/nourished, no apparent distress, alert, awake , comfortable Head: atraumatic, normal appearance Neck: normal inspection, supple Cardiovascular: regular rate/rhythm Respiratory: mild b/l wheeze heard in lung prabhakar Peripheral Pulses: 2+ radial (R) Abdomen: normal bowel sounds, soft, non-tender Extremities: no edema Neurologic/Psychiatric: awake, alert, oriented x 3 Current Medications: Current Medications Sig/Jakob Start time Last Medication Dose Route Stop Time Status Admin Ampicillin Sodium/ 1,500 MG Q6 10/12 2359 AC 10/14 Sulbactam Sodium IV 0546 Sodium Chloride 100 ML Aripiprazole 5 MG DAILY 10/12 1000 AC 10/14 PO 0853 Atorvastatin Calcium 20 MG 1700 10/12 1700 AC 10/13 PO 1654 Bisacodyl 10 MG DAILY PRN 10/11 1815 AC WI Calcium Carbonate 500 MG Q6-PRN PRN 10/11 1815 AC PO Docusate Sodium 100 MG BID 10/11 2200 AC 10/14 PO 0854 Enoxaparin Sodium 40 MG DAILY 10/13 1000 AC 10/14 SC 0854 Magnesium Hydroxide 30 ML DAILY NEEDED PRN 10/11 1815 AC 10/14 PO 0853 Morphine Sulfate 2 MG Q3P PRN 10/11 1815 AC 10/12 IV 1242 Oxycodone/ 1 TAB Q4P PRN 10/13 0915 AC 10/14 Acetaminophen PO 0605 Oxycodone/ 2 TAB Q4P PRN 10/13 0915 AC 10/13 Acetaminophen PO 1235 Pantoprazole Sodium 40 MG DAILY 10/12 2100 AC 10/14 IV 0853 Paroxetine HCl 40 MG DAILY 10/12 1000 AC 10/14 PO 0853 Results Last 24 Hrs Lab/Ervin Results: Laboratory Tests 10/14/16 0720: Anion Gap 7, Estimated GFR > 60, BUN/Creatinine Ratio 22.5, CBC w Diff NO MAN DIFF REQ, RBC 2.93 L, MCV 95.2, MCH 32.3 H, RDW 14.3, MPV 8.1, Gran % 63.0, Lymphocytes % 23.6, Monocytes % 9.3, Eosinophils % 3.4, Basophils % 0.7, Absolute Granulocytes 4.1, Absolute Lymphocytes 1.5, Absolute Monocytes 0.6, Absolute Eosinophils 0.2, Absolute Basophils 0, PUBS MCHC 33.9 Recent Imaging Studies: Improved aeration in the lungs when compared to the recent prior exam.- 10/13/16 JASON FORMAN,SOFIE 10/14/16 1129: Attending MD Review Statement Attending Sign Off Attending Cosign Statement: I have: examined this patient, reviewed aval EMR data, personally reviewd images, discussd w/resident/PA/LEVI MAKER, discussed mgmt plan w/ashanti, discussed mgmt plan w/pt, agreed w/resident/PA/LEVI MAKER, amended to note. Other Findings: Patient seen and examined, able to communicate but limited secondary to having history of mental retardation. She denies any complaints. She denies any aches , pains or any shortness of breath. Vital Signs Date Time Temp Pulse Resp B/P B/P Pulse O2 O2 Flow FiO2 Mean Ox Delivery Rate 10/14 1026 Nasal 1.0L Cannula 10/14 0800 98 Nasal 1.0L Cannula 10/14 0653 98.1 98 18 124/74 99 Nasal 1.0L Cannula 10/14 0000 99 Nasal 1.0L Cannula 10/13 2300 98.2 102 18 118/68 99 Nasal 1.0L Cannula 10/13 1600 97 Nasal 1.0L Cannula 10/13 1600 97.8 102 20 102/60 95 Nasal 1.0L Cannula on exam; awake, nad. cv; s1,s2, rrr resp; decreased bs at bases. abd; soft, nt, bs+ ext; no edema, + Justyn wrap on left lower extremity. Laboratory Tests 10/14 0720 Chemistry Sodium (137 - 145 mmol/L) 139 Potassium (3.5 - 5.1 mmol/L) 4.0 Chloride (98 - 107 mmol/L) 104 Carbon Dioxide (22 - 30 mmol/L) 28 Anion Gap (5 - 16) 7 BUN (7 - 17 mg/dL) 18 H Creatinine (0.5 - 1.0 mg/dL) 0.8 Estimated GFR (>60 ml/min) > 60 BUN/Creatinine Ratio (7 - 25 %) 22.5 Hematology CBC w Diff NO MAN DIFF REQ WBC (4.8 - 10.8 /CUMM) 6.5 RBC (4.20 - 5.40 /CUMM) 2.93 L Hgb (12.0 - 16.0 G/DL) 9.4 L Hct (37 - 47 %) 27.9 L MCV (81.0 - 99.0 FL) 95.2 MCH (27.0 - 31.0 PG) 32.3 H RDW (11.5 - 14.5 %) 14.3 Plt Count (130 - 400 /CUMM) 244 MPV (7.4 - 10.4 FL) 8.1 Gran % (42.2 - 75.2 %) 63.0 Lymphocytes % (20.5 - 51.1 %) 23.6 Monocytes % (1.7 - 9.3 %) 9.3 Eosinophils % (0 - 5 %) 3.4 Basophils % (0.0 - 2.0 %) 0.7 Absolute Granulocytes (1.4 - 6.5 /CUMM) 4.1 Absolute Lymphocytes (1.2 - 3.4 /CUMM) 1.5 Absolute Monocytes (0.10 - 0.60 /CUMM) 0.6 Absolute Eosinophils (0.0 - 0.7 /CUMM) 0.2 Absolute Basophils (0.0 - 0.2 /CUMM) 0 PUBS MCHC (33.0 - 37.0 G/DL) 33.9 Assessment and recommendations; 66 y/o F with pmh sig for mental retardation since , tension, anxiety, obsessive-compulsive disorder, hyperlipidemia, GERD admitted with a mechanical fall and found to have left-sided tibia-fibula fracture, status post IM rodding postop day # 2 today. Course complicated by patient developing aspiration pneumonia intraoperatively and then subsequently moved to ICU. After stabilization she has been moved back to [facility] floor. Overall doing much better. Oxygen requirement is improving. Continue to taper O2. Can switch IV Unasyn to by mouth Augmentin to complete a total of seven-day course which should include a number of days she has received as an inpatient. Postop care per orthopedic. Slight dropping H&H, no need to transfuse but would recommend monitoring. Continue other current medications. DVT prophylaxis: Lovenox. From medical standpoint there is no contraindication for discharge as far as her oxygen can be tapered and she can be switched to oral antibiotics.
[2016-10-14 14:46] VITALS: BP 116/62
[2016-10-14] MEDS ORDERED: AUGMENTIN 875-1 EACH PO (17:18)
--- NOTE | 2016-10-14 17:21 | Patient Discharge Instructions ---
Discharge Instructions General Discharge Information You were seen/treated for: left tibial, fibula fracture You had these procedures: left tib/fib phill Watch for these problems: temp>101, increased redness or drainage of wounds Other wound care: Keep incisions clean and dry, no bathing or soaking. May shower. Diet Continue normal diet: Yes Activity Activity Limited to: No weight bearing (to left leg) Acute Coronary Syndrome Inclusion Criteria At DC or during hospital stay patient has or had the following: ACS DIAGNOSIS No Discharge Core Measures Meds if any: Prescribed or Continued at Discharge Meds if any: NOT Prescribed or Continued at Discharge Congestive Heart Failure Inclusion Criteria At DC or during hospital stay patient has or had the following: CHF DIAGNOSIS No Discharge Core Measures Meds if any: Prescribed or Continued at Discharge Meds if any: NOT Prescribed or Continued at Discharge Cerebrovascular accident Inclusion Criteria At DC or during hospital stay patient has or had the following: CVA/TIA Diagnosis No Discharge Core Measures Meds if any: Prescribed or Continued at Discharge Meds if any: NOT Prescribed or Continued at Discharge Venous thromboembolism Inclusion Criteria VTE Diagnosis No VTE Type NONE VTE Confirmed by (Test) NONE Discharge Core Measures - Per Current guidelines, there needs to be overlap - treatment for the first 5 days of Warfarin therapy. - If discharged on Warfarin prior to 5 days of - overlap therapy, the patient will need to be - assessed for post discharge needs including - *Post discharge parental anticoagulation - *Warfarin and/or parental anticoagulation education - *Follow up date to check INR post discharge At least 5 days overlap therapy as Inpatient No Meds if any: Prescribed or Continued at Discharge Note: Overlap Therapy is Warfarin and Anticoagulant Meds if any: NOT Prescribed or Continued at Discharge
[2016-10-14] MEDS ORDERED: PERCOCET 5-3251 EACH PO (17:33)
[2016-10-14] MEDS ORDERED: LOVENOX40 MG/0.1 SC (17:34)
--- NOTE | 2016-10-14 20:54 | Operative Report ---
Operative/Inv Procedure Report Surgery Date: 10/12/16 Name of Procedure: A left tibial intramedullary rodding Pre-Operative Diagnosis: Left displaced tibia/fibular fracture Post-Operative Diagnosis: Same Estimated Blood Loss: 50ml to 100ml Surgeon/Scalping Machine Operator: ADAM FORMAN,Yumi DUKES Anesthesia: general endotracheal tube Implants: [place] tibial phill size 10 x 28.5 3 interlocking screws Drains: None Specimens: None Tourniquet: 66 minutes Complications: None Condition: Stable Operative Indication: Patient is a 66-year-old woman who has a history of mental retardation who twisted her left lower extremity and sustained a displaced comminuted distal tibia/fibular fracture. Due to the displacement it was recommended that she consider tibial rodding. Consent was obtained through her power of cloud software engineer since she was unable to make medical consent decision. Risks, benefits and expectations were discussed with the power of cloud software engineer which included but were not limited to persistent leg pain, malunion, nonunion, injury to blood vessel or nerve, infection, DVT, anesthesia risks. They wish to proceed. Also monitoring patient's medical exam and compartments was of importance and it was explained that there was a possibility that if the compartment pressure increased after surgery that she may need another surgical procedure to decompress. Preoperatively compartments were monitored medically and there was no evidence of compartment syndrome by exam. Patient's pain was well-controlled preoperatively with minimal pain medication Operative/Procedure Note Note: Patient was brought to the operating room and transferred to the operating table. The left lower external he was prepped and draped in standard fashion. Preoperative IV antibiotic's were given prophylactically. Left lower extremity was elevated exsanguinated and tourniquet was inflated to 300 mm of pressure. A standard anterior incision was made just medial to the patellar tendon. Incision was taken down sharply to the underlying retinaculum. The area of starting point was identified. I used an awl to enter the proximal tibia. I checked fluoroscopic images to make sure my starting point. I was satisfied. I then. Placed a beaded guidewire through this all and then passed it across the fracture site. Intraoperative fluoroscopic images were obtained to confirm that I was in the intramedullary canal rostrally and distally. I was satisfied. I measured the anticipated phill length to be 28.5. I then started reaming while protecting the soft tissues. I reamed up to a size 11-1/2 for anticipated insertion of a size 10 mm intramedullary phill. Copious irrigation of the wound followed. I then passed the 10 mm phill down the canal and at the fracture site and visualized under fluoroscopic image and then passed into the distal canal. The guidewire was removed and I confirm that the phill was in place. I then placed 2 proximal interlock screws through the guide which was applied to the construct. I checked the length of the interlocks I was satisfied. I then turned my attention to the distal interlock. In a freehand fashion I placed the distal interlock in standard fashion by drilling confirming and measuring followed by placing the appropriate length screw in place. I obtained final fluoroscopic images to confirm reduction of the fracture, maintenance of the reduction, placement of the hardware and confirmation that the interlock screws were in good position. Copious irrigation of the wound followed. Tourniquet was deflated hemostasis was obtained. Blood loss was only about 50 mL. The retinaculum was closed with interrupted #0 Vicryl suture. Subcutaneous tissues closed with 2-0 Vicryl and skin was closed with christal. The stab incisions for the interlock screws were also closed with 2-0 Vicryl followed by christal. Appropriate dressings were applied and patient was awakened and taken the recovery room in good condition. No intraoperative complications. Discharge Disposition: PACU
[2016-10-14 22:04] VITALS: BP 112/64
[2016-10-15 06:32] VITALS: BP 130/86
[2016-10-15 07:40] LABS: ABSOLUTE BASOPHIL COUNT 0 /CUMM (0.0-0.2); ABSOLUTE EOSINOPHIL COUNT 0.2 /CUMM (0.0-0.7); ABSOLUTE GRANULOCYTE CT 4.5 /CUMM (1.4-6.5); ABSOLUTE LYMPH COUNT 1.3 /CUMM (1.2-3.4); ABSOLUTE MONOCYTE COUNT 0.6 /CUMM (0.10-0.60); BASOPHIL % 0.3 % (0.0-2.0); EOSINOPHIL % 2.8 % (0-5); GRANULOCYTE % 67.9 % (42.2-75.2); HEMATOCRIT 27.2 % (37-47); MEAN CORPUSCULAR HGB 32.5 PG (27.0-31.0); MEAN CORPUSCULAR HGB CONC 33.9 G/DL (33.0-37.0); MEAN CORPUSCULAR VOLUME 95.9 FL (81.0-99.0); MEAN PLATELET VOLUME 8.5 FL (7.4-10.4); PLATELET COUNT 257 /CUMM (130-400); RBC DISTRIBUTION WIDTH 14.3 % (11.5-14.5); RED BLOOD CELL CT 2.84 /CUMM (4.20-5.40); WHITE BLOOD CELL COUNT 6.7 /CUMM (4.8-10.8)
--- NOTE | 2016-10-15 07:48 | PN- Orthopedic ---
Core Measures/Miscellaneous Venous Thromboembolism VTE Risk Factors: Age > 40, Surgery VTE Contraindications: No Contraindications VTE Diagnosis: No VTE Type: NONE VTE Confirmed by (Test): NONE Beta Bina Is Beta Bina a Home Med? No Antibiotics Is Patient on Antibiotics? Yes If Yes: infection
--- NOTE | 2016-10-15 07:59 | Surgical Discharge Summary ---
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 Home Who Do You Live With? Other (see notes) Services at Home: 24 hour care What is Your Primary Language? Malay ETOH Use: denies use Review of Systems: see h&p Hospital Course Course Attending Physician: ADAM FORMAN,ERNST Primary Care Physician: ELLIOTT MELENDEZ MD Hospital Course: Valeria was admitted to the hospital on 10/11/2016 with a tib fib fracture to her left lower extremity. She underwent an ORIF with an IM rodding of her tibia on 10/12/2016. Upon initiation of anesthesia, she vomitted and developed an aspiration pneumonia. She was transferred postoperatively to the intensive care unit where she was seen and treated by medical staff. IV antibiotics were intiated and the patient showed signs of improvement. She was transferred to a general surgical floor. Her vital signs were stable and within normal limits. She was voiding spontaneously and moved her bowels. Her diet was advanced and tolerated. Her pain was managed with PO pain medications. She was evaluated and treated by physical therapy. She was deemed orthopedically and medically stable and was appropriate for discharge. Allergies: Coded Allergies: No Known Allergies (10/11/16) Disposition Summary Disposition Principal Diagnosis: Left tibia and fibula fracture Additional Diagnosis: none Discharge Disposition: SNF Discharge Instructions General Discharge Information Code Status: Full Code Patient's Diet: Regular, advance as tolerated Patient's Activity: non weight bearing to lle until re-evaluated by Dr. Olivo in two weeks from date of surgery Follow-Up Instructions/Appts: Follow up with Dr. Olivo in 2 weeks from date of surgery Medications at Discharge Discharge Medications: Stop taking the following medications: Ibuprofen (Ibuprofen) 600 MG TABLET ORAL Q6H as needed for PAIN/INFLAMMATION Continue taking these medications: Alendronate Sodium (Alendronate Sodium) 70 MG TABLET 1 Tablet ORAL EVERY TUESDAY Instructions: in the morning, at least 30 minutes before the first food, beverage, or medication of the day Paroxetine HCl (Paroxetine HCl) 40 MG TABLET 1 Tablet ORAL DAILY Qty = 30 Atorvastatin Calcium (Atorvastatin Calcium) 20 MG TABLET 1 Tablet ORAL DAILY Qty = 90 Calcium Carbonate (TUMS) 200 MG CALCIUM (500 MG) TAB.CHEW 2 Tablet ORAL 4 TIMES A DAY as needed for GI Omeprazole (Omeprazole) 20 MG CAPSULE.DR 1 Capsule ORAL DAILY Qty = 90 Aripiprazole (Aripiprazole) 5 MG TABLET 1 Tablet ORAL DAILY Qty = 30 Bifidobacterium Infantis (Align) 4 MG (1 BILLION CELL) CAPSULE 1 Capsule ORAL DAILY Valsartan (Valsartan) 80 MG TABLET 1 Tablet ORAL DAILY Qty = 90 Start taking the following new medications: Enoxaparin Sodium (Lovenox) 40 MG/0.4 ML SYRINGE 40 Milligram Inject into fatty tissue DAILY Qty = 30 No Refills Oxycodone HCl/Acetaminophen (Percocet 5-325 MG Tablet) 5 MG-325 MG TABLET 1-2 Tablet ORAL EVERY 4 HOURS NEEDED as needed for PAIN Qty = 36 No Refills Amoxicillin/Potassium Clav (Augmentin 875-125 Tablet) 875 MG-125 MG TABLET 1 Tablet ORAL TWICE DAILY Qty = 9 No Refills Instructions: Continue twice daily through 10/19
--- NOTE | 2016-10-15 08:55 | PN- Orthopedic ---
Subjective Subjective: No acute overnight events reported. Patient has been nwb on lle. Has been voiding on bedpan. Has been oob to chair, required greer lift to return to bed. No complaints of chest pain, shortness of breath. Remains on supplemental o2, but respiratory effort normal. Objective Vital Signs and I&Os Vital Signs Date Time Temp Pulse Resp B/P B/P Pulse O2 O2 Flow FiO2 Mean Ox Delivery Rate 10/15 0632 98.2 99 18 130/86 95 Room Air 10/15 0000 93 Nasal 1.0L Cannula 10/14 2204 98.6 105 20 112/64 92 Nasal 1.0L Cannula 10/14 1446 98.1 100 20 116/62 96 Room Air 10/14 1326 94 124/68 10/14 1026 Nasal 1.0L Cannula Intake & Output 10/15 1600 10/15 0800 10/15 0000 10/14 1600 10/14 0800 10/14 0000 Intake Total 651 325 6289 240 220 Output Total 700 350 600 350 250 Balance -200 100 400 -110 -30 Intake, IV 260 100 120 Intake, Oral 240 450 900 120 220 Number 0 Bowel Movements Output, Urine 700 350 600 350 250 Physical Exam: General: Alert, no acute distress Cardiac: RRR, s1s2 Pulmonary: Diminished breath sounds at bases with expiratory wheeze noted on right side Abdomen: Non-tender, non-distended Extremiteis: Moves all extremities, distal sensation intact. Skin warm and well perfused. Posterior splint remains on LLE but calf soft and no skin breakdown noted. Right calf soft and non-tender. Assessment/Plan Assessment/Plan This is a 66 year old female, POD 3, s/p ORIF left tibia with IM rodding. PMH significant for htn, hld, and mental retardation. Hospital course complicated by aspiration pna upon related to vomitting upon initiation of anesthesia. -Continue unasyn while in hospital, pt to be on abx until 10/19, will switch to po augmentin upon discharge -Continue non-weight bearing status until pt sees Dr. Olivo at two week post op -Continue lovenox 40 sq for dvt ppx -Stable for discharge from orthopedic standpoint, appreciate medical team input -Discharge disposition to short term rehab Core Measures/Miscellaneous Venous Thromboembolism VTE Risk Factors: Age > 40, Surgery VTE Contraindications: No Contraindications VTE Diagnosis: No VTE Type: NONE VTE Confirmed by (Test): NONE Beta Bina Is Beta Bina a Home Med? No Antibiotics Is Patient on Antibiotics? Yes If Yes: infection
--- NOTE | 2016-10-15 10:26 | PN- Medicine Consult ---
STUART FORMAN,SHAILESH 10/15/16 1018: Assessment/Plan Assessment/Plan Assessment: 66-year-old F who is mental retardation since , history of hypertension, obsessive-compulsive disorder, hyperlipidemia, GERD ,osteoporosis on bisphosphnate therapy presented to the [facility] after having a mechanical fall which resulted in a displaced fracture of the tibia and fibula. Post procedure, aspirated, was transferred to ICU for closer monitoring and started on abx. She did desaturate in ICU and was placed on oxygen, she has improved with oxygen saturation 95% on room air. Fracture Post operative day 2 for left tibia IM phill pain control per surgical service Aspiration PNA Has remained afebrile overnight O2 saturations, 95% 1L would titrated off and watch oxygen levels. Keep >92% May switch abx to augmentin to complete 5 day course. Would recommend 1 more day of abx. Acute Blood Loss Anemia HH has stabilized 9.2/27.9. HTN BP 130/86 continue home medications would monitor K, as outpatient, elevated on arrival Constipation Monitor for BM, may require suppository Hyperkalemia resolved RAUL resolved HLD continue lipitor GERD continue prilosec Depression continue Abilify, Paxil DVT ppx lovenox Plan: See Above Problem List: 1. Comminuted fracture of shaft of tibia 2. Comminuted fracture of shaft of fibula 3. GERD (gastroesophageal reflux disease) 4. Hyperlipidemia 5. Hypertension 6. RAUL (acute kidney injury) Subjective Subjective: Sitting in chair feels well, using crossword puzzle. Feels well, no complaints. Review of Systems Constitutional: Reports: see HPI. Objective Last 24 Hrs of Vital Signs/I&O Vital Signs Date Time Temp Pulse Resp B/P B/P Pulse O2 O2 Flow FiO2 Mean Ox Delivery Rate 10/15 0942 Nasal 1.0L Cannula 10/15 0901 130/82 10/15 0632 98.2 99 18 130/86 95 Room Air 10/15 0000 93 Nasal 1.0L Cannula 10/14 2204 98.6 105 20 112/64 92 Nasal 1.0L Cannula 10/14 1446 98.1 100 20 116/62 96 Room Air 10/14 1326 94 124/68 10/14 1026 Nasal 1.0L Cannula Intake & Output 10/15 1600 10/15 0800 10/15 0000 Intake Total 500 450 Output Total 700 350 Balance -200 100 Intake, IV 260 Intake, Oral 240 450 Output, Urine 700 350 Physical Exam General Appearance: well developed/nourished, no apparent distress, alert, awake , comfortable Head: atraumatic, normal appearance Neck: normal inspection, supple Cardiovascular: regular rate/rhythm Respiratory: decreased breath sounds, mild wheeze detected Peripheral Pulses: 2+ radial (R) Abdomen: normal bowel sounds, soft, non-tender Extremities: no edema, splint in place on LLE Current Medications: see medication list Results Last 24 Hrs Lab/Ervin Results: reviewed SOFIE GOMEZ MD 10/15/16 1103: Attending MD Review Statement Attending Sign Off Attending Cosign Statement: I have: examined this patient, reviewed aval EMR data, discussd w/resident/PA/ BUSINESS CONTROL SPECIALIST, discussed mgmt plan w/ashanti, discussed mgmt plan w/pt, agreed w/resident/PA/BUSINESS CONTROL SPECIALIST , amended to note. Other Findings: Patient seen and examined, denies any complaints. She does not complete of any pain in the left lower extremity. She is slightly tachycardic but she has always been tachycardic since her admission. Her oxygenation is improving. At this point she can be switched to oral antibiotics for aspiration pneumonia complete a total of 5 day course. Her labs are reviewed and they are pretty much stable. From medical standpoint she is stable for discharge to rehabilitation. Her oxygen can be tapered down to room air if she can tolerate. For DVT plexus she is on Lovenox. Medical issues are stable therefore we will sign off. Please call with questions.
[2016-10-15 14:03] VITALS: BP 144/82
[2016-10-15 14:53] VITALS: BP 136/80
== END 2016-10-15 16:10 | DRG 492 ==
LOC: ENRESERVTM → ENRESERVDT → ERH 15:19 → 2NB 18:06 → ERHI 18:06 → 2NA 18:06 → CRI 18:06 → 2NA 20:47 → CRI 10-12 20:27 → 2NB 10-13 22:52
PROVIDERS: Internal Medicine; Physician Assistant; Physician Assistant Surgical; ADMIT Orthopaedic Surgery
PROC: 0QSH06Z Reposition Left Tibia with Intramedullary Internal Fixation Device, Open Approach (ICD-10-PCS; principal; 2016-10-12)
DX: S82.392A Other fracture of lower end of left tibia, initial encounter for closed fracture (principal); J69.0 Pneumonitis due to inhalation of food and vomit; N17.9 Acute kidney failure, unspecified; D62 Acute posthemorrhagic anemia; J95.89 Other postprocedural complications and disorders of respiratory system, not elsewhere classified; S82.492A Other fracture of shaft of left fibula, initial encounter for closed fracture; F79 Unspecified intellectual disabilities; I10 Essential (primary) hypertension; E78.5 Hyperlipidemia, unspecified; F32.9 Major depressive disorder, single episode, unspecified; K21.9 Gastro-esophageal reflux disease without esophagitis; W18.30XA Fall on same level, unspecified, initial encounter; Y92.099 Unspecified place in other non-institutional residence as the place of occurrence of the external cause; M81.0 Age-related osteoporosis without current pathological fracture
CPT/HCPCS: 2NASP; 2NBP; CCU; 36415; 73590-LT; 73610-LT; 82436; 87040; 87070; 93005; 93010; 96374; 96376; 97110-GO; 97161-GP; 97530-GO; J0131; J0690; J1100; J1650; J2405; J7042